=== PATIENT | male | born 1965 | race Caucasian/White ===

== ENCOUNTER 2017-02-15 11:59 | Emergency (ER) | payer MEDICAID | END 2017-02-15 15:10 | disposition home or self-care (01) | LOC: D.ER 11:59 | DX: S50.812A Abrasion of left forearm, initial encounter (principal); W10.9XXA Fall (on) (from) unspecified stairs and steps, initial encounter; Y93.89 Activity, other specified; Y92.89 Other specified places as the place of occurrence of the external cause; S40.012A Contusion of left shoulder, initial encounter; F17.200 Nicotine dependence, unspecified, uncomplicated ==

== ENCOUNTER 2017-11-14 13:23 | Inpatient (IN) | payer MEDICAID ==
[~2017-11-14] VITALS: Ht 177.8 cm; Wt 80.4 kg
[2017-11-14] MEDS ORDERED: LISINOPRIL5 MG PO (15:48)
[2017-11-14] MEDS ORDERED: COREG 3.1253.125 MG PO (15:49)
[2017-11-14] MEDS ORDERED: BAYER CHEWABLE81 MG PO (15:49)
[2017-11-14 15:50] VITALS: BP 129/94; BMI 26.0
[2017-11-14] MEDS ORDERED: LIPITOR80 MG PO (15:50)
[2017-11-14] MEDS ORDERED: BRILINTA90 MG PO (15:50)
[2017-11-14 17:21] LABS: BASOPHILS 0.4 % (0-2); EOSINOPHILS 1.3 % (0-7); HEMATOCRIT 38.3 % (42.0-54.0); HEMOGLOBIN 12.7 g/dL (13.5-17.5); IMMATURE GRANULOCYTES 0.1 % (0-5); MCH 31.2 pg (26.0-34.0); MCHC 33.2 g/dL (31.0-37.0); MCV 94.1 fL (80.0-100.0); MEAN PLATELET VOLUME 9.3 fL (7.4-10.4); MONOCYTES 9.7 % (2-11); NEUTROPHILS 62.5 % (40-80); PLATELET COUNT 259 10x3/uL (130-400); RBC 4.07 10x6/uL (4.20-6.10); RDW 12.5 % (11.5-14.5)
[2017-11-14 17:46] LABS: ALBUMIN 3.7 g/dL (3.4-5.0); ALKALINE PHOSPHATASE 72 U/L (46-116); ALT (SGPT) 33 U/L (10-68); BILIRUBIN - TOTAL 0.56 mg/dL (0.2-1.3); CALC OSMOLALITY 279 mosm/kg (275-300); CALCIUM 8.6 mg/dL (8.5-10.1); CARBON DIOXIDE 28.9 mmol/L (21.0-32.0); CHLORIDE - SERUM 104 mmol/L (98-107); CKMB 3.6 U/L (0.0-3.6); CREATINE KINASE 246 UL (21-232); CREATININE - SERUM 1.1 mg/dL (0.6-1.3); GLUCOSE 93 mg/dL (74-106); POTASSIUM - SERUM 3.8 mmol/L (3.5-5.1); PROTEIN - SERUM 7.1 g/dL (6.4-8.2); SODIUM 140 mmol/L (136-145); UREA NITROGEN 16 mg/dL (7-18); eGFR NON AFRICAN AMERICAN 75 mL/min (90-120)
[2017-11-14 17:47] LABS: TROPONIN-I < 0.017 ng/mL (0.000-0.060)
[2017-11-14 19:00] VITALS: BP 118/76
[2017-11-14 23:22] LABS: CKMB 2.9 U/L (0.0-3.6); CREATINE KINASE 229 UL (21-232)
[2017-11-14 23:23] LABS: TROPONIN-I < 0.017 ng/mL (0.000-0.060)
[2017-11-15 04:00] VITALS: BP 119/85
[2017-11-15 04:54] LABS: BASOPHILS 0.8 % (0-2); EOSINOPHILS 3.3 % (0-7); HEMATOCRIT 40.4 % (42.0-54.0); HEMOGLOBIN 13.4 g/dL (13.5-17.5); IMMATURE GRANULOCYTES 0.3 % (0-5); LYMPHOCYTES 32.1 % (15-50); MCH 31.1 pg (26.0-34.0); MCHC 33.2 g/dL (31.0-37.0); MCV 93.7 fL (80.0-100.0); MEAN PLATELET VOLUME 9.5 fL (7.4-10.4); MONOCYTES 11.8 % (2-11); NEUTROPHILS 51.7 % (40-80); PLATELET COUNT 262 10x3/uL (130-400); RBC 4.31 10x6/uL (4.20-6.10); RDW 12.7 % (11.5-14.5); WBC 6.3 10x3/uL (4.8-10.8)
[2017-11-15 05:24] LABS: CALC OSMOLALITY 274 mosm/kg (275-300); CALCIUM 8.6 mg/dL (8.5-10.1); CARBON DIOXIDE 23.7 mmol/L (21.0-32.0); CHLORIDE - SERUM 105 mmol/L (98-107); CKMB 2.4 U/L (0.0-3.6); CREATINE KINASE 180 UL (21-232); GLUCOSE 98 mg/dL (74-106); SODIUM 137 mmol/L (136-145); UREA NITROGEN 16 mg/dL (7-18); eGFR NON AFRICAN AMERICAN 83 mL/min (90-120)
[2017-11-15 05:27] LABS: TROPONIN-I < 0.017 ng/mL (0.000-0.060)
[2017-11-15 09:50] VITALS: BP 124/84
[2017-11-15 12:09] VITALS: Ht 177.8 cm; Wt 80.4 kg
[2017-11-15 12:15] VITALS: BP 121/80
== END 2017-11-15 15:00 | disposition home or self-care (01) | DRG 303 ==
LOC: D.M2 13:23
PROVIDERS: Emergency Medicine
DX: I25.110 Atherosclerotic heart disease of native coronary artery with unstable angina pectoris (principal); I10 Essential (primary) hypertension; E78.5 Hyperlipidemia, unspecified; J44.9 Chronic obstructive pulmonary disease, unspecified; Z86.73 Personal history of transient ischemic attack (TIA), and cerebral infarction without residual deficits; Z95.5 Presence of coronary angioplasty implant and graft; Z72.0 Tobacco use

== ENCOUNTER 2017-11-24 10:54 | Outpatient (CLI) | payer MEDICAID ==
[~2017-11-24] VITALS: Ht 177.8 cm; Wt 83.6 kg
--- NOTE | ~2017-11-24 | HEMODYNAMI ---
PATIENT:OLI PATTERSON MEDICAL RECORD: [id number] : 65 LOCATION:[facility] ADMISSION DATE: 11/24/17 Generatedon:11/24/201713:26 Patient name: OLI PATTERSON Patient #: [id number] SSN: : 1965 Date of study: 11/24/2017 Page: Of Hemodynamic Procedure Report Patient Data Patient Demographics Procedure consent was obtained First Name: OLI Gender: Male Last Name: LEONARDO : 1965 [facility] Initial: ASCENCION Age: 52 year(s) Patient #: [id number] Race: Unknown Additional ID: [id number] Contact details Address: [facility] [address] State: [place] City: [place] Zip code: [address] Past Medical History Allergies Allergen Reaction Date Comments Reported Penicillins 11/24/2017 Admission Admission Data Admission Date: 11/24/2017 Admission Time: 10:54 Weight (lbs.): 184 Weight (kg.): 83.46 Lab Results Lab Result Date: 11/24/2017 Lab Result Time: 0:00 Biochemistry Name Units Result Min Max BUN mg/dl 19 --(----)*- 7 18 Creatinine mg/dl 1 --(--*-)-- 0.6 1.3 CBC Name Units Result Min Max Hemoglobin g/dl 14.5 --(*---)-- 13.5 17.5 Procedure Procedure Types Cath Procedure Diagnostic Procedure LHC LH w/Coronaries Miscellaneous Procedures Moderate Sedation up to 15 minutes Procedure Description Procedure Date Procedure Date: 11/24/2017 Procedure Start Time: 13:08 Procedure End Time: 13:25 Procedure Staff Name Function Arley Medrano MD Performing Physician Rach Herrera RT Monitor Oscar Finnegan RT Scrub Samuel Finn RN Nurse Procedure Data Cath Procedure Fluoroscopy Diagnostic fluoroscopy Total fluoroscopy Time: 2.9 time: 2.9 min min Diagnostic fluoroscopy Total fluoroscopy dose: 429 dose: 429 mGy mGy Contrast Material Contrast Material Type Amount (ml) Isovue 300 78 Entry Location Entry Primary Successful Side Size Upsize Upsize Entry Closure Suarez ccessful Closure Location (Fr) 1 (Fr) 2 (Fr) Remarks Device Remarks Radial Right 6 Fr Mechanical artery Short Compression Estimated blood loss: 5 ml Diagnostic catheters Device Type Used For End Catheter Placement DIAGNOSTIC Bentley 110cm Procedure 5Fr catheter ([id number]) DIAGNOSTIC Pigtail 5Fr Procedure catheter ([id number]) Procedure Complications No complications Procedure Medications Medication Administration Route Dosage 0.9% NaCl I.V. 100 ml/hr Oxygen NC 2 l/min Heparin Flush Bag added to field 2 bags (1000units/500ml NS) Lidocaine 2% added to field 20 Radial Cocktail added to field 1 syringe (Verapomil 2mg/Nitro 400mcg/Heparin 1500units) Versed I.V. 1 mg Fentanyl I.V. 50 mcg Versed I.V. 1 mg Fentanyl I.V. 50 mcg Versed I.V. 1 mg Radial Cocktail I.A. 1 syringe (Verapomil 2mg/Nitro 400mcg/Heparin 1500units) Hemodynamics Rest HGB: 14.5 (g/dl) Heart Rate: 78 (bpm) Pressure Samples Time Site Value (mmHg) Purpose Heart Use Rate(bpm) 13:12 LV 116/-11,0 Snapshot 83 13:19 LV 120/-8,2 Snapshot 90 13:20 AO 102/58(75) Pullback 84 13:20 LV 115/-5,4 Pullback 84 Gradients Valve Time Site 1 Site 2 Mean SEP/DFP Peak To Heart Use (mmHg) (sec/min) Peak Rate (mmHg) (bpm) Aortic 13:20 LV AO 8 17 13 84 115/-5,4 102/58(75) Calculations Valve P-P Mean Valve Index Valve Source Name Gradient Area Flow (cm2) Aortic 13 8 13 8 Snapshots Pre Cath Intra NCS Post Cath Vital Signs Time Heart Resp SPO2 etCO2 NIBP Rhythm Pain Sedation Rate (ipm) (%) (mmHg) (mmHg) Status Level (bpm) 13:00:38 79 20 100 27.9 122/83(98) NSR 0 (11) 10(A) , No pain 13:05:16 82 17 97 30.2 122/78(89) NSR 0 (11) 10(A) , No pain 13:09:55 83 18 96 30.2 115/74(95) NSR 0 (11) 10(A) , No pain 13:14:33 92 17 97 23.4 110/68(90) NSR 0 (11) 9(A) , No pain 13:19:14 97 18 98 18.8 116/61(78) NSR 0 (11) 9(A) , No pain 13:23:54 82 18 98 17.3 116/62(98) NSR 0 (11) 9(A) , No pain Medications Time Medication Route Dose Verified Delivered Reason Notes Effectiveness by by 13:00:13 0.9% NaCl I.V. 100 Samuel Samuel Per ml/hr Aakash Finn physician RN RN 13:00:23 Oxygen NC 2 l/min Samuel Samuel Per Aakash Finn physician RN RN 13:00:38 Heparin Flush added 2 bags Samuel Samuel used for Bag to Lorigan Aakash procedure (1000units/500ml RN RN NS) 13:00:52 Lidocaine 2% added 20ml Samuel Samuel for local to vial Lorigan Lorigan anesthetic RN RN 13:01:04 Radial Cocktail added 1 Samuel Samuel used for (Verapomil to syringe Lorigan Melindaigan procedure 2mg/Nitro field DOW RN 400mcg/Heparin 1500units) 13:02:12 Versed I.V. 1 mg Samuel Samuel for sedation Aakash Finn RN RN 13:02:24 Fentanyl I.V. 50 mcg Samuel Sameul for sedation Aakash Finn RN RN 13:10:22 Versed I.V. 1 mg Samuel Samuel for sedation Aakash Finn RN RN 13:10:27 Fentanyl I.V. 50 mcg Samuel Samuel for sedation Aakash Finn RN RN 13:11:41 Versed I.V. 1 mg Samuel Samuel for sedation Aakash Finn RN RN 13:12:01 Radial Cocktail I.A. 1 Samuel Arley for (Verapomil syringe Aakash goldberg 2mg/Nitro RN 400mcg/Heparin 1500units) Procedure Log Time Note 12:37:31 Patient Weight : 184 lbs 12:37:43 Time tracking: Regular hours 12:37:50 Plan of Care:Hemodynamics will remain stable., Cardiac rhythm will remain stable., Comfort level will be maintained., Respiratory function will remain adequate., Patient/ family verbilizes understanding of procedure., Procedure tolerated without complication., Recovers from procedure without complications.. 12:38:11 Signed procedure consent form obtained from patient. 12:38:18 H&P Date Dictated: 11/17/2017 Within 30 days and on chart., H&P Addendum completed by physician on day of procedure. (MUST COMPLETE FOR ALL OUTPATIENTS). 12:38:25 Patient allergic to Penicillins 12:39:22 Lab Result : BUN 19 mg/dl 12:39:22 Lab Result : Hemoglobin 14.5 g/dl 12:39:22 Lab Result : Creatinine 1 mg/dl 12:41:14 Samuel Finn RN sent for patient. Start room use. 12:46:40 Patient received from Pre/Post Procedure Room to CCL 1 Alert and oriented. Tansferred to table in Supine position. 12:46:42 Warm blankets applied, and marilyn hugger turned on for patient comfort. 12:46:42 Correct patient and procedure confirmed by team. 12:46:43 ECG and BP/O2 sat monitors applied to patient. 12:59:48 Vital chart was started 12:59:49 Baseline sample Acquired. 12:59:55 Rhythm: sinus rhythm 12:59:57 Full Disclosure recording started 12:59:58 Pre-procedure instructions explained to patient. 12:59:58 Pre-op teaching completed and patient verbalized understanding. 13:00:06 Family in patients room. 13:00:07 Patient NPO since Midnight. 13:00:11 Is patient on blood thinner?Yes 13:00:13 0.9% NaCl 100 ml/hr I.V. was administered by Samuel Finn RN; Per physician; 13:00:14 ACC The patient was administered the following blood thiners within the last 24 hours: ACCPlavix 13:00:15 Patient diabetic? No. 13:00:19 Previous problem with sedation/anesthesia? No ? 13:00:20 Snore? Yes 13:00:23 Oxygen 2 l/min NC was administered by Samuel Finn RN; Per physician; 13:00:26 Sleep apnea? No 13:00:28 Deviated septum? No 13:00:29 Opens mouth fully? Yes 13:00:29 Sticks out tongue? Yes 13:00:31 Airway obstruction? No ? 13:00:34 Dentures? No ? 13:00:36 Modified Rodriguez's test Ulnar < 7 seconds 13:00:38 Heparin Flush Bag (1000units/500ml NS) 2 bags added to field was administered by Samuel Finn RN; used for procedure; 13:00:38 Patient pain scale 0/10 ?. 13:00:43 IV patent on arrival in left antecubital with 0.9% NaCl at [facility]. 13:00:52 Lidocaine 2% 20ml vial added to field was administered by Samuel Finn RN; for local anesthetic; 13:01:04 Radial Cocktail (Verapomil 2mg/Nitro 400mcg/Heparin 1500units) 1 syringe added to field was administered by Samuel Finn RN; used for procedure; 13:01:27 Lab results completed and on chart. 13:01:31 Right Radial & Right Groin area was prepped with chlora-prep and draped in sterile fashion 13:01:32 Alarms reviewed by R. N. 13:01:32 Sharps counted by scrub and verified by R.N. 13:01:40 --------ALL STOP TIME OUT------ 13:01:40 Final Timeout: patient, procedure, and site verified with staff and physician. All members of the team are in agreement. 13:01:42 Right Radial & Right Groin site verified by team. 13:01:45 Physical assessment completed. ASA score P 2 - A patient with mild systemic disease as per Arley Medrano MD. 13:01:48 Sedation plan: IV Moderate Sedation Medication:Versed, Fentanyl 13:02:12 Versed 1 mg I.V. was administered by Samuel Finn RN; for sedation; 13:02:24 Fentanyl 50 mcg I.V. was administered by Samuel Finn RN; for sedation; 13:02:56 Use device set Radial Dx or PCI 13:02:58 ACIST Syringe (84515) opened to sterile field. 13:02:59 Bag Decanter (2002S) opened to sterile field. 13:03:00 ACIST Hand Control (26045) opened to sterile field. 13:03:01 ACIST Manifold (58812) opened to sterile field. 13:03:01 Tegaderm 4 x 4 (1626W) opened to sterile field. 13:03:03 Medline Cath Pack ([id number]) opened to sterile field. 13:03:04 SHEATH 6FR Slender ([id number]) opened to sterile field. 13:03:04 DIAGNOSTIC WIRE .035 260cm J wire (618100) opened to sterile field. 13:03:05 MBrace Wrist Support ([id number]) opened to sterile field. 13:03:06 NEEDLE Cook 21G 4cm Radial (W65057) opened to sterile field. 13:05:53 Zero performed for pressure channel P1 13:08:33 Procedure started. 13:08:58 Local anesthetic to right radial artery with Lidocaine 2% by Arley Medrano MD.INITIAL ACCESS ONLY 13:10:18 A 6 Fr Short sheath was inserted into the Right Radial artery 13:10:22 Versed 1 mg I.V. was administered by Samuel Finn RN; for sedation; 13:10:27 Fentanyl 50 mcg I.V. was administered by Samuel Finn RN; for sedation; 13:11:37 A DIAGNOSTIC Bentley 110cm 5Fr catheter (120902) was advanced over the wire and used for Procedure. 13:11:41 Versed 1 mg I.V. was administered by Samuel Finn RN; for sedation; 13:12:01 Radial Cocktail (Verapomil 2mg/Nitro 400mcg/Heparin 1500units) 1 syringe I.A. was administered by Arley Medrano MD; for vasodilation; 13:13:26 RCA angiography performed. 13:16:20 LCA angiography performed. 13:18:19 Catheter exchanged over wire. 13:18:30 A DIAGNOSTIC Pigtail 5Fr catheter ([id number]) was advanced over the wire and used for Procedure. 13:19:30 LV gram done using BRITO 13:19:46 Injector settings: Ml/sec: 5, Volume: 15, 13:19:47 LV hemodynamics recorded. 13:20:10 EF : 60 % 13:21:11 Catheter removed. 13:21:20 TR BAND Standard ([id number]) opened to sterile field. 13:21:33 Sheath removed intact; hemostasis achieved with Mechanical Compression to the Right Radial artery. 13:21:42 Procedure ended.(Physican Out) 13:22:02 Fluoroscopy time 02.90 minutes. 13:22:06 Fluoroscopy dose: 429 mGy 13:22:06 Flurop Dose total: 429 13:22:12 Contrast amount:Isovue 300 78ml. 13:22:13 Sharps counted by scrub and verified by R.N. 13:22:30 TR band inflated with 13cc of air. 13:22:39 Post-procedure physical assessment completed. ASA score P 2 - A patient with mild systemic disease as per Arley Medrano MD. 13:22:42 Post procedure rhythm: unchanged. 13:22:44 Estimated blood loss: 5 ml 13:22:45 Post procedure instruction explained to patient.Patient verbalizes understanding. 13:22:46 Patient needs reinforcement of post procedure teaching. 13:24:03 Procedure type changed to Cath procedure, Diagnostic procedure, LHC, LHC w/Coronaries, Miscellaneous Procedures, Moderate Sedation up to 15 minutes 13:24:25 Procedure and supply charges have been captured, reviewed, submitted and are correct. 13:24:28 Procedure Complication : No complications 13:25:47 Vital chart was stopped 13:25:48 See physician's report for complete and final results. 13:25:50 Report given to Pre/Post Procedure Room. 13:25:53 Patient transfered to Pre/Post Procedure Room with Bed. 13:25:55 Procedure ended. 13:25:55 Full Disclosure recording stopped 13:25:59 End room use (Document Last) Device Usage Item Name Manufacture Quantity Catalog Hospital Part Current Minima l Lot# / Number Charge Number Stock Stock Serial# Code ACIST Acist 1 20324 630401 223802 224763 20 Syringe Medical (30047) Systems Inc Bag Decanter Microtek 1 2001S 992099 59939 815680 5 () Medical Inc. ACIST Hand Acist 1 47431 665071 715462 259465 5 Control Medical (22853) Systems Inc ACIST Acist 1 82282 654641 623819 195395 5 Manifold Medical (15928) Systems Inc Tegaderm 4 x 3M 1 1626W 721276 690135 383728 5 4 (1626W) Medline Cath Cardinal 1 [id number] 830552 03665 693473 5 [facility] ([id number]) SHEATH 6FR Terumo 1 [id number] 922324 921943 276417 40 Slender ([id number]) DIAGNOSTIC [facility] Luis 1 754310 873867 499376 203735 30 WIRE .035 260cm J wire (156958) MBrace Wrist Advanced 1 140-0250-00 919600 51391 271951 5 Support Vascular ([id number]) Dynamics NEEDLE Cook [place] [employer] 1 Y23335 718966 685924 858147 5 21G 4cm Radial (U74533) DIAGNOSTIC Terumo 1 40-5762 408989 589730 485256 5 Bentley 110cm 5Fr catheter (033019) DIAGNOSTIC Cardinal 1 329266H 564746 641356 726973 5 Pigtail 5Fr Health catheter (422168N) TR BAND Terumo 1 GIO07-CAU 557823 902133 007198 40 Standard ([id number]) Signature Audit [place] Stage Time Signature Unsigned Intra-Procedure 11/24/2017 Rach Herrera 1:26:11 PM RT(R) Signatures Monitor : Rach Herrera Signature : RT Date : Time : [facility] Abiola REYNOLDS, JULIAN [address]
[~2017-11-24 10:54] MED LIST: BAYER CHEWABLE81 MG PO; BRILINTA90 MG PO; COREG 3.1253.125 MG PO; LIPITOR80 MG PO; LISINOPRIL5 MG PO
[2017-11-24 11:24] VITALS: BP 124/92; Ht 177.8 cm; Wt 83.6 kg
[2017-11-24 11:38] LABS: BASOPHILS 0.6 % (0-2); EOSINOPHILS 1.1 % (0-7); HEMOGLOBIN 14.5 g/dL (13.5-17.5); IMMATURE GRANULOCYTES 0.1 % (0-5); LYMPHOCYTES 19.1 % (15-50); MCH 31.7 pg (26.0-34.0); MCHC 33.7 g/dL (31.0-37.0); MCV 93.9 fL (80.0-100.0); MEAN PLATELET VOLUME 9.3 fL (7.4-10.4); MONOCYTES 6.2 % (2-11); NEUTROPHILS 72.9 % (40-80); PLATELET COUNT 281 10x3/uL (130-400); RBC 4.58 10x6/uL (4.20-6.10); RDW 12.4 % (11.5-14.5); WBC 7.1 10x3/uL (4.8-10.8)
[2017-11-24 11:48] LABS: CALC OSMOLALITY 277 mosm/kg (275-300); CALCIUM 9.3 mg/dL (8.5-10.1); CARBON DIOXIDE 25.2 mmol/L (21.0-32.0); CHLORIDE - SERUM 104 mmol/L (98-107); GLUCOSE 90 mg/dL (74-106); POTASSIUM - SERUM 4.2 mmol/L (3.5-5.1); SODIUM 138 mmol/L (136-145); UREA NITROGEN 19 mg/dL (7-18); eGFR NON AFRICAN AMERICAN 83 mL/min (90-120)
== END 2017-11-24 16:00 | disposition home or self-care (01) ==
LOC: D.CATH 10:54
PROVIDERS: Internal Medicine Cardiovascular Disease
DX: I25.119 Atherosclerotic heart disease of native coronary artery with unspecified angina pectoris (principal); R06.02 Shortness of breath; I10 Essential (primary) hypertension; Z01.812 Encounter for preprocedural laboratory examination

== ENCOUNTER 2017-12-02 07:30 | Inpatient (IN) | payer MEDICAID ==
[2017-12-01 10:18] LABS: BASOPHILS 1.1 % (0-2); EOSINOPHILS 2.5 % (0-7); HEMATOCRIT 40.2 % (42.0-54.0); HEMOGLOBIN 13.2 g/dL (13.5-17.5); IMMATURE GRANULOCYTES 0.1 % (0-5); LYMPHOCYTES 32.2 % (15-50); MCH 31.3 pg (26.0-34.0); MCHC 32.8 g/dL (31.0-37.0); MCV 95.3 fL (80.0-100.0); MEAN PLATELET VOLUME 9.4 fL (7.4-10.4); MONOCYTES 8.5 % (2-11); NEUTROPHILS 55.6 % (40-80); PLATELET COUNT 290 10x3/uL (130-400); RBC 4.22 10x6/uL (4.20-6.10); RDW 12.7 % (11.5-14.5); WBC 7.2 10x3/uL (4.8-10.8)
[2017-12-01 10:42] LABS: APPEARANCE CLEAR (CLEAR); BILIRUBIN NEGATIVE (NEGATIVE); COLOR YELLOW (YELLOW); GLUCOSE NEGATIVE (NEGATIVE); KETONE NEGATIVE (NEGATIVE); NITRITE NEGATIVE (NEGATIVE); PROTEIN NEGATIVE (NEGATIVE); SPECIFIC GRAVITY 1.015 (1.005-1.020)
[2017-12-01 10:46] LABS: APTT 29.8 SECONDS (22.8-39.4); INR 0.91 (0.85-1.17); PROTIME 11.9 SECONDS (11.6-15.0)
[2017-12-01 11:51] LABS: ALBUMIN 3.6 g/dL (3.4-5.0); BILIRUBIN - TOTAL 0.36 mg/dL (0.2-1.3); CALCIUM 8.7 mg/dL (8.5-10.1); CARBON DIOXIDE 21.9 mmol/L (21.0-32.0); CREATININE - SERUM 1.3 mg/dL (0.6-1.3); PHOSPHOROUS 2.8 mg/dL (2.5-4.9); POTASSIUM - SERUM 3.9 mmol/L (3.5-5.1); PROTEIN - SERUM 7.5 g/dL (6.4-8.2); T4 THYROXIN - FREE 1.05 ng/dL (0.76-1.46); THYROID STIMULATING HORMONE 0.85 uIU/mL (0.36-3.74); URIC ACID 4.6 mg/dL (2.6-7.2)
[~2017-12-02] VITALS: Ht 177.8 cm; Wt 88.6 kg
--- NOTE | ~2017-12-02 | HP ---
PATIENT: OLI PATTEROSN MEDICAL RECORD: [id number] ACCOUNT: [id number] LOCATION:[facility] : 65 ADMISSION DATE: 12/02/17 HISTORY AND PHYSICAL EXAMINATION NameOLI PATTERSON (52yo, M) ID# [id number]. Date/Time11/28/2017 02:27GXHZY65/19/1964[facility] Dept.NP_[place] ClinicProviderRUBINA BARAJAS MDInsuranceMed Primary: [place] Insurance # : [id number] Policy/Group # : [id number] Referring Provider Name : RITA MARIE FNP Employer Name : UNKNOWN Prescription: CMX - Member is eligible. Prescription: [facility] MEDICAID ADMINISTRATION - Member is eligible. Chief Complaint Coronary artery disease initial evaluation for CABG Patient's Care Team Referring Provider (): RITA MARIE FNP: [address], [place] [address], , Patient's Pharmacies [facility] [address] (ERX): [address] , [place] [address], , Vitals BP:108/70 sitting L arm 11/28/2017 02:07 pm 110/76 sitting R arm 11/28/2017 02:08 pmBP Cuff Size:adult 11/28/2017 02:07 pm adult 11/28/2017 02:08 pmHR:64,reg 11/28/2017 02:09 pmHt:5 ft 10 in 11/28/2017 02:09 pmWt:180 lbs 11/28/2017 02:10 pmNotes:increasing SOB past month. PCP sent to marisa Medrano, now here. 11/28/2017 02:11 pmBMI:25.8 11/28/2017 02:10 pmAllergies Reviewed Allergies PENICILLINSMedications Reviewed Medications aspirin 81 mg tablet,delayed rjxnesi76/23/18 filledCaremarkatorvastatin 80 mg tablet TK 1 T PO QD11/21/17 filledCaremarkBrilinta 90 mg tablet TK 1 T PO BID11/24/17 filledsurescriptscarvedilol 3.125 mg cyoniq13/23/18 filledCaremarklisinopril 5 mg tablet TK 1 T PO QD11/21/17 filledCaremarknitroglycerin 0.4 mg sublingual zfcopv65/23/18 filledCaremarkProblems Reviewed Problems Coronary arteriosclerosis - Onset: 11/28/2017 Family History Reviewed Family History Father- Coronary arteriosclerosisMother- Coronary arteriosclerosisGRANDPARENTS WITH CADSocial History Reviewed Social History Cardiology Family history of heart disease?: Y Smoking Status: Current every day smoker Smoker (1 PPD) High Cholesterol: Y High blood pressure: Y Diabetes: N HISTORY AND PHYSICAL [id number] OLI PATTERSON Surgical History Reviewed Surgical History CARDIAC CATH 2015 at [facility] Past Medical History Reviewed Past Medical History Angioplasty (balloon): Y - STENTING 2015 Coronary Artery Disease: Y Heart stents: Y Hyperlipidemia: Y Hypertension: Y Notes: HX MYOCARDIAL INFARCTION Documents for Discussion N/A Screening None recorded. HPI Coronary Artery Disease F/U Reported by patient. Severity: no chest discomfort with daily activities; symptoms are worsening Context: smoker Associated Symptoms: dyspnea with exertion Notes: has noted sharp stabbing pains when relaxing, no nocturnal pain. Mostly c/o dyspnea with exertion. ROS Patient reports no fever, no night sweats, no significant weight gain, no significant weight loss, and no exercise intolerance. He reports no dry eyes, no irritation, and no vision change. He reports no difficulty hearing and no ear pain. He reports no frequent nosebleeds and no nose/sinus problems. He reports no sore throat, no bleeding gums, no snoring, no dry mouth, no mouth ulcers, no oral abnormalities, and no teeth problems. H e reports no jugular vein distension and no swollen glands. He reports no chest pain, no arm pain on exertion, no shortness of breath when walking, no shortness of breath when lying down, no palpitations, and no known heart murmur. He reports no cough, no wheezing, no shortness of breath, and no coughing up blood. He reports no abdominal pain, no vomiting, normal appetite, no diarrhea, not vomiting blood, no nausea, and no constipation. He reports no incontinence, no difficulty urinating, no hematuria, and no increased frequency. He reports no muscle aches, no muscle weakness, no arthralgias/joint pain, no back pain, and no swelling in the extremities. He reports no abnormal mole, no jaundice, and no rashes. He reports no loss of consciousness, no weakness, no numbness, no seizures, no dizziness, and no headaches. He reports no depression, no sleep disturbances, feeling safe in relationship, and no alcohol abuse. He reports no fatigue. He reports no swollen glands and no bruising. He reports no runny nose, n o sinus pressure, no itching, no hives, and no frequent sneezing. ROS as noted in the HPI Physical Exam Patient is a 52-year-old male. Constitutional: General Appearance well nourished and developed and healthy-appearing. Level of Distress NAD. Ambulation ambulating normally. Cardiovascular: Apical Impulse not displaced or no thrill. Heart Auscultation normal s1 and s2; no murmurs, rubs, or gallops; and RRR. Arterial Pulses no abdominal aorta bruits, femoral bruits, or popliteal bruits and 2+ bilateral, carotid 2+ bilateral, femoral 2+ bilateral, popliteal 2+ bilateral, and dorsalis pedis 2+ bilateral. Edema no edema or varicosities. HISTORY AND PHYSICAL [id number] OLI PATTERSON Lungs: Repiratory Effort no dyspnea. Percussion no hyperresonance or dullness or flatness. Auscultation no wheezing, rhonchi, or rales / crackles and breathing sounds normal, good air movement, and CTA except as noted. Abdomen: Bowl Sounds normal. Inspection and Palpation no tenderness, guarding, masses, or rebound tenderness and soft and non-distended. Yolanda er non-tender and no hepatomegaly. Spleen non-tender and no splenomegaly. Hernia none palpable. Musculoskeletal System: Gait And Stance normal gait and stance. Digits and Nails normal nails and no cyanosis. Neurologic: Cranial Nerves grossly intact. Reflexes DTRs 2+ bilaterally throughout. Sensation grossly intact. Lymph Nodes: Lymph Nodes no cervical LAD, supraclavicular LAD, axillary LAD, or inguinal LAD. Eyes: Lids and Conjunctivae no discharge or pallor and non-injected. Pupils PERRLA. Cornea grossly intact. EOM EOMI. Lens clear. Sclerae non-icteric. Neck: Neck no masses, enlarged lymph nodes, or carotid bruits and supple and trachea midline. Thyroid no enlargement or nodules and non-tender. Skin: Inspection and Palpation no rash, lesions, ulcers, jaundice, or abnormal nevi. Assessment / Plan 1. Coronary arteriosclerosis I25.10: Atherosclerotic heart disease of [place] coronary artery without angina pectoris 2. Coronary arteriosclerosis in [place] artery I25.110: Atherosclerotic heart disease of [place] coronary artery with unstable angina pectoris 3. Smoker F17.210: Nicotine dependence, cigarettes, uncomplicated 4. Essential hypertension I10: Essential (primary) hypertension HIGH BLOOD PRESSURE: CARE INSTRUCTIONS Patient Instructions Stop smoking Discussion Notes RBA, consents HISTORY AND PHYSICAL [id number] OLI PATTERSON DANIEL W MD at 1733 CC: [id number] DICTATION DATE: 11/28/17 1400 JUNIOR NET DEVELOPER: MIGUELINA 12/01/17 1016 PRE IN [facility] [address] [place] [address]
--- NOTE | ~2017-12-02 | EC ---
PATIENT:OLI PATTERSON DATE OF SERVICE: 12/03/17 SEX: M MEDICAL RECORD: [id number] DATE OF : 65 LOCATION:[place] [address] AGE OF PATIENT: 52 ADMISSION DATE: 12/03/17 REFERRING PHYSICIAN: INTERPRETING PHYSICIAN: DHRUV MOORE MD ECHOCARDIOGRAM REPORT ECHO CHARGES CLINICAL DIAGNOSIS: ECHOCARDIOGRAPHIC MEASUREMENTS (adult normal given) AC root (d.<3.7cm) cm LV Septum d (<1.2 cm> cm Valve Excursion cm LV Septum (systole) cm Left Atria (s.<4.0cm> cm LVPW d(<1.2cm) cm RV (d.<2.3cm) cm LVPW (sytole) cm LV diastole(<5.6CM) cm MV E-F(>70mm/sec) cm LV systole cm LVOT Diameter cm MV exc.(>10mm) cm Est.ejection fraction (50-75%) % Pericardial Effusion DOPPLER: LVIT cm/sec A cm/sec E cm/sec LA cm/sec RVSP mmHg LVOT cm/sec AOP1/2T m/s Asc. Ao cm/sec RVOT cm/sec RA cm/sec PA cm/sec AV Gradient Peak mmHg AV Mean mmHg AV Area cm MV Gradient Peak mmHg MV Mean mmHg MV Area cm COMMENTS: Glassie: Andrés GARNER Computer Aided Drafter: Sidney Medrano TAPE# PACS DATE OF SERVICE: 12/03/2017 Transesophageal echo evaluation of valvular structures during bypass surgery. FINDINGS: 1. Left ventricular chamber size is within normal limits. Left ventricular systolic function is normal. Overall ejection fraction estimated at 55%. 2. Left atrium, right atrium and right ventricular chamber sizes are within normal limits. 3. Valvular structures have normal structure and motion. ECHOCARDIOGRAM REPORT [id number] OLI PATTERSON 4. Doppler interrogation only reveals trace mitral regurgitation. No other valvular insufficiency or stenosis. 5. No evidence of pericardial effusion or left ventricular thrombus. TRANSINT:[id number] Voice Confirmation ID: [id number] DOCUMENT ID: [id number] DHRUV MOORE MD at 1153 CC: [id number] DICTATION DATE: 12/03/17 1229 PAPERHANGER SUPERVISOR: 12/03/17 1303 ADM IN [facility] [address] [place] [address]
--- NOTE | ~2017-12-02 | OP ---
PATIENT NAME: OLI PATTERSON MEDICAL RECORD: [id number] :65 LOCATION:[facility] ADMISSION DATE:12/03/17 SURGEON: PAL BARAJAS MD DATE OF OPERATION: 12/03/2017 SURGEON: Pal Barajas MD CERTIFIED INDOOR ENVIRONMENTALIST: JAMIE Oswald OPERATIVE PROCEDURE: Coronary artery bypass graft times 3 (left internal mammary artery to LAD, reverse saphenous vein grafts from aorta to obtuse marginal and aorta to posterior descending artery). PREOPERATIVE DIAGNOSES: Coronary disease, unstable angina. POSTOPERATIVE DIAGNOSES: Coronary disease, unstable angina. ANESTHESIA: General endotracheal anesthesia. ESTIMATED BLOOD LOSS: Total cardiopulmonary bypass, 800 cc. Cell Saver retransfused. COMPLICATIONS: Left subclavian artery perforation, repaired primarily. SPECIMENS: None. CONDITION: Stable. DISPOSITION: SICU. OPERATIVE FINDINGS: 1. Good quality greater saphenous vein from the lower leg with severe varicosities, about every 3 cm starting from the knee upward. Two good segments were available for use. 2. Good quality internal mammary artery. On visualization in the chest, the subclavian vein had been perforated and was primarily repaired. It was left subclavian introduced after induction and prior to incision. 3. LAD was a 1.5-mm vessel with posterior plaque. A 1.5-mm probe passed distally to the apex and proximally about 1 cm. 4. The diagonal was small, severely calcified, and not amenable to bypass. 5. The obtuse marginal was 1.5 mm and intramyocardial. 6. Posterior descending artery 1.5 mm with severe disease. 7. Normal heart, from cardiopulmonary bypass without difficulty. OPERATIVE INDICATION: Unstable angina, multivessel coronary disease. OPERATIVE SUMMARY IN DETAIL: The patient was brought to the operating suite. General anesthesia was obtained. The patient was prepped and draped. Greater saphenous vein was harvested from the right lower extremity utilizing several incisions. Side branches were clipped. Vessel was ligated proximally and distally, removed, perfused with heparinized saline. Leg was made hemostatic and closed in 2 layers and wrapped with an elastic wrap. Median sternotomy incision was made. Subcutaneous tissue was divided with electrocautery. Sternum was divided with a saw. Left hemisternum was elevated. OPERATIVE REPORT [id number] OLI PATTERSON Left pleural cavity was entered. Left internal mammary artery and vein were taken down as a pedicle graft. The subclavian vein was identified and a perforation site was noted, was repaired primarily, and the left subclavian catheter was removed with no evidence of bleeding. Sternal retractor was placed. Pericardium was opened. Heparin was given. The patient was cannulated in standard fashion. Internal mammary was clipped distally and made ready for anastomosis. The patient was placed on cardiopulmonary bypass. Sites for distal anastomoses were selected. Retrograde cardioplegia cannula was inserted. Antegrade cardioplegic cannula was inserted. The patient was then cooled. Cross-clamp was placed. Cardioplegia was given antegrade and retrograde. This was repeated at 15-minute intervals including down the completed vein grafts. Distal anastomoses were performed in a standard technique. Proximal anastomosis was single, cross-clamped in standard technique. Aortic root was deaired by removing the cross-clamp, tying the proximal anastomosis, deairing the vein graft, and restoring the flow. Proximal and distal anastomotic sites were inspected for bleeding. The patient resumed spontaneous rhythm, fully rewarmed, weaned from cardiopulmonary bypass, and was stable. The patient was decannulated. Retrograde site and aortic cannulation site were oversewn. Hemostasis was assured. Protamine was given. Thorough irrigation was undertaken. Grafts lay appropriately. Drains were placed in mediastinum and left pleural cavity. Pericardial fat was loosely reapproximated. Left chest was evacuated and irrigated. Sternum was closed after inspection of the subclavian. Then, the fascia, subcutaneous tissue, and skin were closed. The patient was stable, to intensive care. TRANSINT:[id number] Voice Confirmation ID: [id number] DOCUMENT ID: [id number] PAL BARAJAS MD at 0656 CC: NIKOS ESPAÑA M.D. [id number] DICTATION DATE: 12/03/17 1648 SUPPORT DIRECTOR: 12/03/17 1830 ADM IN [address] [id number] [place] [address]
[2017-12-03] VITALS (40 sets, daily range): BP systolic 103–140; BP diastolic 53–89; BMI 26.3
[2017-12-03 08:06] LABS: PLT FUNCT.(P2Y12) PLAVIX 258 PRU (194-418)
[2017-12-03 14:05] LABS: HEMATOCRIT 39.2 % (42.0-54.0); HEMOGLOBIN 12.8 g/dL (13.5-17.5); MCH 31.4 pg (26.0-34.0); MCHC 32.7 g/dL (31.0-37.0); MCV 96.3 fL (80.0-100.0); MEAN PLATELET VOLUME 9.3 fL (7.4-10.4); RBC 4.07 10x6/uL (4.20-6.10); RDW 12.8 % (11.5-14.5); WBC 28.5 10x3/uL (4.8-10.8)
[2017-12-03 14:17] LABS: APTT 31.7 SECONDS (22.8-39.4); INR 1.21 (0.85-1.17); PROTIME 14.8 SECONDS (11.6-15.0)
[2017-12-03 14:19] LABS: CALCIUM 7.7 mg/dL (8.5-10.1); CHLORIDE - SERUM 110 mmol/L (98-107); CREATININE - SERUM 0.9 mg/dL (0.6-1.3); POTASSIUM - SERUM 3.4 mmol/L (3.5-5.1); SODIUM 145 mmol/L (136-145); UREA NITROGEN 17 mg/dL (7-18); eGFR NON AFRICAN AMERICAN > 90 mL/min (90-120)
[2017-12-03 14:21] LABS: CALC OSMOLALITY 288 mosm/kg (275-300); GLUCOSE 56 mg/dL (74-106)
[2017-12-04] VITALS (47 sets, daily range): BP systolic 99–139; BP diastolic 52–93; Ht 177.8 cm; Wt 88.6 kg
[2017-12-04 06:19] LABS: ALBUMIN 3.1 g/dL (3.4-5.0); BILIRUBIN - TOTAL 0.54 mg/dL (0.2-1.3); CALCIUM 7.7 mg/dL (8.5-10.1); CARBON DIOXIDE 25.1 mmol/L (21.0-32.0); CREATININE - SERUM 1.1 mg/dL (0.6-1.3); HEMATOCRIT 37.7 % (42.0-54.0); HEMOGLOBIN 12.5 g/dL (13.5-17.5); MCH 31.3 pg (26.0-34.0); MCHC 33.2 g/dL (31.0-37.0); MCV 94.3 fL (80.0-100.0); MEAN PLATELET VOLUME 9.2 fL (7.4-10.4); PROTEIN - SERUM 6.1 g/dL (6.4-8.2); WBC 23.1 10x3/uL (4.8-10.8)
[2017-12-04 06:20] LABS: POTASSIUM - SERUM 4.1 mmol/L (3.5-5.1)
[2017-12-05] VITALS (31 sets, daily range): BP systolic 86–121; BP diastolic 44–74
[2017-12-05 05:10] LABS: HEMATOCRIT 35.3 % (42.0-54.0); HEMOGLOBIN 11.5 g/dL (13.5-17.5); MCH 30.8 pg (26.0-34.0); MCHC 32.6 g/dL (31.0-37.0); MCV 94.6 fL (80.0-100.0); MEAN PLATELET VOLUME 9.6 fL (7.4-10.4); RBC 3.73 10x6/uL (4.20-6.10); RDW 13.2 % (11.5-14.5); WBC 22.2 10x3/uL (4.8-10.8)
[2017-12-05 05:15] LABS: ALBUMIN 2.7 g/dL (3.4-5.0); ALKALINE PHOSPHATASE 51 U/L (46-116); ALT (SGPT) 25 U/L (10-68); BILIRUBIN - TOTAL 0.75 mg/dL (0.2-1.3); CALC OSMOLALITY 263 mosm/kg (275-300); CARBON DIOXIDE 26.5 mmol/L (21.0-32.0); CHLORIDE - SERUM 98 mmol/L (98-107); GLUCOSE 118 mg/dL (74-106); POTASSIUM - SERUM 4.3 mmol/L (3.5-5.1); PROTEIN - SERUM 6.1 g/dL (6.4-8.2); SODIUM 130 mmol/L (136-145); UREA NITROGEN 19 mg/dL (7-18); eGFR NON AFRICAN AMERICAN 83 mL/min (90-120)
[2017-12-05 18:33] LABS: HEMATOCRIT 34.1 % (42.0-54.0); HEMOGLOBIN 11.5 g/dL (13.5-17.5)
[2017-12-05 22:56] LABS: ALBUMIN 2.4 g/dL (3.4-5.0); ALKALINE PHOSPHATASE 49 U/L (46-116); ALT (SGPT) 26 U/L (10-68); CALC OSMOLALITY 267 mosm/kg (275-300); CALCIUM 7.8 mg/dL (8.5-10.1); CARBON DIOXIDE 23.7 mmol/L (21.0-32.0); CHLORIDE - SERUM 99 mmol/L (98-107); CREATININE - SERUM 0.8 mg/dL (0.6-1.3); GLUCOSE 124 mg/dL (74-106); POTASSIUM - SERUM 3.9 mmol/L (3.5-5.1); PROTEIN - SERUM 6.3 g/dL (6.4-8.2); SODIUM 132 mmol/L (136-145); UREA NITROGEN 18 mg/dL (7-18); eGFR NON AFRICAN AMERICAN > 90 mL/min (90-120)
[2017-12-06] VITALS (42 sets, daily range): BP systolic 85–123; BP diastolic 41–72
[2017-12-06 06:08] LABS: HEMATOCRIT 30.7 % (42.0-54.0); HEMOGLOBIN 10.1 g/dL (13.5-17.5); MCH 30.6 pg (26.0-34.0); MCHC 32.9 g/dL (31.0-37.0); MEAN PLATELET VOLUME 9.8 fL (7.4-10.4); RBC 3.3 10x6/uL (4.20-6.10); RDW 13.2 % (11.5-14.5)
[2017-12-06 06:27] LABS: ALBUMIN 2.3 g/dL (3.4-5.0); ALKALINE PHOSPHATASE 48 U/L (46-116); ALT (SGPT) 26 U/L (10-68); CALC OSMOLALITY 273 mosm/kg (275-300); CALCIUM 7.6 mg/dL (8.5-10.1); CHLORIDE - SERUM 102 mmol/L (98-107); CREATININE - SERUM 0.8 mg/dL (0.6-1.3); GLUCOSE 120 mg/dL (74-106); PROTEIN - SERUM 5.5 g/dL (6.4-8.2); SODIUM 136 mmol/L (136-145); UREA NITROGEN 16 mg/dL (7-18); eGFR NON AFRICAN AMERICAN > 90 mL/min (90-120)
[2017-12-07] VITALS (24 sets, daily range): BP systolic 90–123; BP diastolic 44–89
[2017-12-07 05:07] LABS: HEMATOCRIT 27.9 % (42.0-54.0); HEMOGLOBIN 9.3 g/dL (13.5-17.5); MCH 30.8 pg (26.0-34.0); MCHC 33.3 g/dL (31.0-37.0); MCV 92.4 fL (80.0-100.0); MEAN PLATELET VOLUME 9.2 fL (7.4-10.4); RBC 3.02 10x6/uL (4.20-6.10); RDW 13.3 % (11.5-14.5); WBC 10.9 10x3/uL (4.8-10.8)
[2017-12-07 05:28] LABS: ALBUMIN 2.2 g/dL (3.4-5.0); ALKALINE PHOSPHATASE 41 U/L (46-116); ALT (SGPT) 24 U/L (10-68); BILIRUBIN - TOTAL 0.57 mg/dL (0.2-1.3); CALC OSMOLALITY 266 mosm/kg (275-300); CALCIUM 8.3 mg/dL (8.5-10.1); CARBON DIOXIDE 24.3 mmol/L (21.0-32.0); CHLORIDE - SERUM 102 mmol/L (98-107); CREATININE - SERUM 0.9 mg/dL (0.6-1.3); GLUCOSE 107 mg/dL (74-106); POTASSIUM - SERUM 3.6 mmol/L (3.5-5.1); SODIUM 133 mmol/L (136-145); UREA NITROGEN 16 mg/dL (7-18); eGFR NON AFRICAN AMERICAN > 90 mL/min (90-120)
[2017-12-08] VITALS: BP 110/60
[2017-12-08 04:57] LABS: HEMATOCRIT 30.8 % (42.0-54.0); HEMOGLOBIN 10.1 g/dL (13.5-17.5); MCH 30.9 pg (26.0-34.0); MCHC 32.8 g/dL (31.0-37.0); MCV 94.2 fL (80.0-100.0); MEAN PLATELET VOLUME 9.3 fL (7.4-10.4); RBC 3.27 10x6/uL (4.20-6.10); RDW 13.3 % (11.5-14.5); WBC 10.9 10x3/uL (4.8-10.8)
[2017-12-08 05:13] LABS: ALBUMIN 2.3 g/dL (3.4-5.0); ALKALINE PHOSPHATASE 44 U/L (46-116); ALT (SGPT) 28 U/L (10-68); CALC OSMOLALITY 271 mosm/kg (275-300); CALCIUM 8.1 mg/dL (8.5-10.1); CARBON DIOXIDE 24.5 mmol/L (21.0-32.0); CHLORIDE - SERUM 102 mmol/L (98-107); CREATININE - SERUM 0.9 mg/dL (0.6-1.3); GLUCOSE 100 mg/dL (74-106); POTASSIUM - SERUM 3.4 mmol/L (3.5-5.1); PROTEIN - SERUM 6.3 g/dL (6.4-8.2); SODIUM 135 mmol/L (136-145); UREA NITROGEN 17 mg/dL (7-18); eGFR NON AFRICAN AMERICAN > 90 mL/min (90-120)
[2017-12-08 07:00] VITALS: BP 134/60
[2017-12-08] MEDS ORDERED: SENOKOT-S TABLE1 TAB PO (08:57)
[2017-12-08] MEDS ORDERED: COLACE100 MG PO (08:58)
[2017-12-08] MEDS ORDERED: HYDROCODONE-APA1 TAB PO (09:02)
[2017-12-08] MEDS ORDERED: TOPROL XL25 MG PO (09:45)
[2017-12-08] MEDS ORDERED: CARDIZEM CD120 MG PO (09:52)
[2017-12-08] MEDS ORDERED: CORDARONE200 MG PO (09:53)
== END 2017-12-08 11:05 | disposition home or self-care (01) | DRG 236 ==
LOC: D.SDCHOLD 07:30 → D.CVICU 12-03 05:29 → D.SDCHOLD 12-03 05:29 → D.CVICU 12-03 13:09 → D.M2 12-05 16:04 → D.CVICU 12-05 20:34
PROVIDERS: Internal Medicine Cardiovascular Disease; Thoracic Surgery (Cardiothoracic Vascular Surgery)
PROC: 021109W Bypass Coronary Artery, Two Arteries from Aorta with Autologous Venous Tissue, Open Approach (ICD-10-PCS; 2017-12-03)
PROC: 06BP0ZZ Excision of Right Saphenous Vein, Open Approach (ICD-10-PCS; 2017-12-03)
PROC: 03Q Upper Arteries, Repair (ICD-10-PCS; 2017-12-03)
PROC: 5A1221Z Performance of Cardiac Output, Continuous (ICD-10-PCS; 2017-12-03)
PROC: B245ZZ4 Ultrasonography of Left Heart, Transesophageal (ICD-10-PCS; 2017-12-03)
PROC: 02100Z9 Bypass Coronary Artery, One Artery from Left Internal Mammary, Open Approach (ICD-10-PCS; principal; 2017-12-03 07:30)
DX: I25.110 Atherosclerotic heart disease of native coronary artery with unstable angina pectoris (principal); I97.51 Accidental puncture and laceration of a circulatory system organ or structure during a circulatory system procedure; I48.91 Unspecified atrial fibrillation; E78.5 Hyperlipidemia, unspecified; I10 Essential (primary) hypertension; Y83.8 Other surgical procedures as the cause of abnormal reaction of the patient, or of later complication, without mention of misadventure at the time of the procedure; Z72.0 Tobacco use

== ENCOUNTER → 2017-12-24 08:47 | Outpatient (CLI) | payer MEDICAID ==
[2017-12-04 10:19] VITALS: BMI 27.8
[~2017-12-24 08:47] MED LIST changes: +CARDIZEM CD120 MG PO; +COLACE100 MG PO; +CORDARONE200 MG PO; +HYDROCODONE-APA1 TAB PO; +LEVAQUIN750 MG PO; +SENOKOT-S TABLE1 TAB PO; +TOPROL XL25 MG PO
[2017-12-24 09:19] LABS: HEMATOCRIT 32.2 % (42.0-54.0); HEMOGLOBIN 10.1 g/dL (13.5-17.5); MCH 29.8 pg (26.0-34.0); MCHC 31.4 g/dL (31.0-37.0); MEAN PLATELET VOLUME 8.3 fL (7.4-10.4); RBC 3.39 10x6/uL (4.20-6.10); RDW 13.3 % (11.5-14.5)
[2017-12-24 09:33] LABS: ALBUMIN 2.9 g/dL (3.4-5.0); ANION GAP 13.1 mmol/L (8-16); BILIRUBIN - TOTAL 0.2 mg/dL (0.2-1.3); CALCIUM 8.8 mg/dL (8.5-10.1); CARBON DIOXIDE 25.9 mmol/L (21.0-32.0); CREATININE - SERUM 1.2 mg/dL (0.6-1.3); PROTEIN - SERUM 7.1 g/dL (6.4-8.2)
== END | disposition home or self-care (01) ==
LOC: D.LAB 08:47
PROVIDERS: Thoracic Surgery (Cardiothoracic Vascular Surgery)
DX: J91.8 Pleural effusion in other conditions classified elsewhere (principal); D64.9 Anemia, unspecified

== ENCOUNTER 2018-01-05 18:00 | Inpatient (IN) | payer MEDICAID ==
[~2018-01-05] VITALS: Ht 177.8 cm; Wt 82.3 kg
[~2018-01-05 18:00] MED LIST changes: -LEVAQUIN750 MG PO
[2018-01-05 19:50] LABS: BASOPHILS 0.8 % (0-2); EOSINOPHILS 3.4 % (0-7); HEMATOCRIT 36.9 % (42.0-54.0); IMMATURE GRANULOCYTES 0.2 % (0-5); LYMPHOCYTES 16.3 % (15-50); MCH 30.1 pg (26.0-34.0); MCHC 32.5 g/dL (31.0-37.0); MCV 92.5 fL (80.0-100.0); MEAN PLATELET VOLUME 8.6 fL (7.4-10.4); MONOCYTES 9.1 % (2-11); NEUTROPHILS 70.2 % (40-80); PLATELET COUNT 434 10x3/uL (130-400); RBC 3.99 10x6/uL (4.20-6.10); RDW 13.9 % (11.5-14.5)
[2018-01-05 19:59] LABS: APTT 28.5 SECONDS (22.8-39.4); INR 1.02 (0.85-1.17)
[2018-01-05 20:12] LABS: ALBUMIN 3.3 g/dL (3.4-5.0); ALKALINE PHOSPHATASE 98 U/L (46-116); ALT (SGPT) 38 U/L (10-68); BILIRUBIN - TOTAL 0.25 mg/dL (0.2-1.3); CALC OSMOLALITY 280 mosm/kg (275-300); CALCIUM 8.7 mg/dL (8.5-10.1); CARBON DIOXIDE 25.3 mmol/L (21.0-32.0); CHLORIDE - SERUM 104 mmol/L (98-107); CREATININE - SERUM 1.2 mg/dL (0.6-1.3); GLUCOSE 99 mg/dL (74-106); SODIUM 140 mmol/L (136-145); UREA NITROGEN 17 mg/dL (7-18); eGFR NON AFRICAN AMERICAN 67 mL/min (90-120)
[2018-01-05 20:23] LABS: CKMB 1.1 U/L (0.0-3.6); CREATINE KINASE 97 UL (21-232); PRO BNP 480 pg/mL (0-125); TROPONIN-I 0.027 ng/mL (0.000-0.060)
[2018-01-05 22:15] LABS: TROPONIN-I 0.016 ng/mL (0.000-0.060)
[2018-01-06] VITALS (7 sets, daily range): BP systolic 96–181; BP diastolic 58–93; Ht 177.8 cm; Wt 82.3 kg
[2018-01-06 04:32] LABS: BASOPHILS 0.7 % (0-2); EOSINOPHILS 2.9 % (0-7); HEMATOCRIT 38.1 % (42.0-54.0); HEMOGLOBIN 12.3 g/dL (13.5-17.5); IMMATURE GRANULOCYTES 0.3 % (0-5); LYMPHOCYTES 18.6 % (15-50); MCHC 32.3 g/dL (31.0-37.0); MCV 92.9 fL (80.0-100.0); MEAN PLATELET VOLUME 8.7 fL (7.4-10.4); MONOCYTES 9.7 % (2-11); NEUTROPHILS 67.8 % (40-80); PLATELET COUNT 464 10x3/uL (130-400); RDW 13.8 % (11.5-14.5); WBC 10.9 10x3/uL (4.8-10.8)
[2018-01-06 05:04] LABS: CALC OSMOLALITY 276 mosm/kg (275-300); CALCIUM 8.8 mg/dL (8.5-10.1); CARBON DIOXIDE 26.4 mmol/L (21.0-32.0); CHLORIDE - SERUM 102 mmol/L (98-107); CREATINE KINASE 90 UL (21-232); CREATININE - SERUM 1.1 mg/dL (0.6-1.3); GLUCOSE 85 mg/dL (74-106); POTASSIUM - SERUM 4.4 mmol/L (3.5-5.1); SODIUM 138 mmol/L (136-145); UREA NITROGEN 18 mg/dL (7-18); eGFR NON AFRICAN AMERICAN 75 mL/min (90-120)
[2018-01-06 09:56] LABS: CKMB 0.9 U/L (0.0-3.6); CREATINE KINASE 77 UL (21-232); TROPONIN-I 0.021 ng/mL (0.000-0.060)
[2018-01-07 01:40] VITALS: BP 96/63
[2018-01-07 05:35] VITALS: BP 103/65
[2018-01-07 06:07] LABS: BASOPHILS 0.1 % (0-2); EOSINOPHILS 0.2 % (0-7); HEMATOCRIT 36.6 % (42.0-54.0); HEMOGLOBIN 11.8 g/dL (13.5-17.5); IMMATURE GRANULOCYTES 0.3 % (0-5); LYMPHOCYTES 11.5 % (15-50); MCH 29.7 pg (26.0-34.0); MCHC 32.2 g/dL (31.0-37.0); MCV 92.2 fL (80.0-100.0); MONOCYTES 7.2 % (2-11); NEUTROPHILS 80.7 % (40-80); PLATELET COUNT 459 10x3/uL (130-400); RBC 3.97 10x6/uL (4.20-6.10); RDW 13.8 % (11.5-14.5)
[2018-01-07 06:08] LABS: ANION GAP 14.9 mmol/L (8-16); CALCIUM 8.8 mg/dL (8.5-10.1); CREATININE - SERUM 1.1 mg/dL (0.6-1.3); POTASSIUM - SERUM 3.9 mmol/L (3.5-5.1)
[2018-01-07 06:15] LABS: WBC 14.3 10x3/uL (4.8-10.8)
[2018-01-07 08:57] VITALS: BP 116/77
[2018-01-07 12:16] VITALS: BP 110/60
[2018-01-07 15:09] LABS: APPEARANCE CLEAR (CLEAR); BILIRUBIN NEGATIVE (NEGATIVE); COLOR YELLOW (YELLOW); GLUCOSE NEGATIVE (NEGATIVE); KETONE NEGATIVE (NEGATIVE); NITRITE NEGATIVE (NEGATIVE); PROTEIN NEGATIVE (NEGATIVE); SPECIFIC GRAVITY 1.015 (1.005-1.020)
[2018-01-07 16:10] VITALS: BP 105/66
[2018-01-07 20:00] VITALS: BP 102/61
[2018-01-08 04:00] VITALS: BP 101/71
[2018-01-08 05:57] LABS: BASOPHILS 1.1 % (0-2); EOSINOPHILS 2.5 % (0-7); HEMATOCRIT 37.3 % (42.0-54.0); HEMOGLOBIN 12.1 g/dL (13.5-17.5); IMMATURE GRANULOCYTES 0.2 % (0-5); LYMPHOCYTES 19.9 % (15-50); MCHC 32.4 g/dL (31.0-37.0); MCV 92.3 fL (80.0-100.0); MEAN PLATELET VOLUME 8.7 fL (7.4-10.4); MONOCYTES 7.3 % (2-11); PLATELET COUNT 388 10x3/uL (130-400); RBC 4.04 10x6/uL (4.20-6.10); RDW 13.9 % (11.5-14.5)
[2018-01-08 05:59] LABS: WBC 9.2 10x3/uL (4.8-10.8)
[2018-01-08 06:27] LABS: ANION GAP 13.4 mmol/L (8-16); CALCIUM 8.6 mg/dL (8.5-10.1); CREATININE - SERUM 1.1 mg/dL (0.6-1.3); POTASSIUM - SERUM 4.4 mmol/L (3.5-5.1)
[2018-01-08 09:35] VITALS: BP 113/73
[2018-01-08 10:50] VITALS: BP 132/68
[2018-01-08] MEDS ORDERED: LEVAQUIN750 MG PO (13:56)
== END 2018-01-08 17:06 | disposition home or self-care (01) | DRG 190 ==
LOC: D.ER 18:00 → D.EDHOLD 21:37 → D.M2 21:37
PROVIDERS: Emergency Medicine; Family Medicine; Internal Medicine Nephrology
DX: J44.0 Chronic obstructive pulmonary disease with (acute) lower respiratory infection (principal); J18.9 Pneumonia, unspecified organism; I25.10 Atherosclerotic heart disease of native coronary artery without angina pectoris; Z95.1 Presence of aortocoronary bypass graft; I48.0 Paroxysmal atrial fibrillation; I10 Essential (primary) hypertension; E78.5 Hyperlipidemia, unspecified

== ENCOUNTER → 2018-01-21 08:46 | Outpatient (CLI) | payer MEDICAID ==
[2018-01-06 11:51] VITALS: BMI 28.3
[~2018-01-21 08:46] MED LIST changes: +LEVAQUIN750 MG PO
== END | disposition home or self-care (01) ==
LOC: D.RAD 08:45
DX: J90 Pleural effusion, not elsewhere classified (principal)

== ENCOUNTER → 2018-02-05 12:01 | Outpatient (CLI) | payer MEDICAID ==
[2018-01-06 11:51] VITALS: BMI 28.3
== END | disposition home or self-care (01) ==
LOC: D.US 12:00
DX: I73.9 Peripheral vascular disease, unspecified (principal); M79.604 Pain in right leg

== ENCOUNTER → 2018-02-16 11:00 | Outpatient (CLI) | payer MEDICAID ==
[~2018-02-16] VITALS: Ht 177.8 cm; Wt 81.8 kg
--- NOTE | ~2018-02-16 | HEMODYNAMI ---
PATIENT:OLI PATTERSON MEDICAL RECORD: [id number] : 65 LOCATION:[facility] ADMISSION DATE: 02/16/18 Generatedon:02/16/201813:07 Patient name: OLI PATTERSON Patient #: [id number] SSN: : 1965 Date of study: 02/16/2018 Page: Of Hemodynamic Procedure Report Patient Data Patient Demographics Procedure consent was obtained First Name: OLI Gender: Male Last Name: LEONARDO : 1965 [facility] Initial: ASCENCION Age: 52 year(s) Patient #: [id number] Race: Unknown Additional ID: [id number] Contact details Address: [facility] [address] State: [place] City: [place] Zip code: [address] Past Medical History Allergies Allergen Reaction Date Comments Reported Penicillins 11/24/2017 Penicillins 02/16/2018 Admission Admission Data Admission Date: 02/16/2018 Admission Time: 11:00 Lab Results Lab Result Date: 02/16/2018 Lab Result Time: 0:00 Biochemistry Name Units Result Min Max BUN mg/dl 16 --(---*)-- 7 18 Creatinine mg/dl 1 --(--*-)-- 0.6 1.3 CBC Name Units Result Min Max Hemoglobin g/dl 14 --(*---)-- 13.5 17.5 Procedure Procedure Types Cath Procedure Peripheral Cath Diagnostic Procedure Cath Peripheral Zsblu-Knasyof-Smj-Off Procedure Description Procedure Date Procedure Date: 02/16/2018 Procedure Start Time: 12:56 Procedure End Time: 13:06 Procedure Staff Name Function Arley Medrano MD Performing Physician Rach Herrera RT Monitor Samuel Finn RN Nurse Kylie Herring RT Scrub Procedure Data Cath Procedure Fluoroscopy Diagnostic fluoroscopy Total fluoroscopy Time: 0.9 time: 0.9 min min Diagnostic fluoroscopy Total fluoroscopy dose: 158 dose: 158 mGy mGy Contrast Material Contrast Material Type Amount (ml) Isovue 370 78 Entry Location Entry Primary Successful Side Size Upsize Upsize Entry Closure Succes sful Closure Location (Fr) 1 (Fr) 2 (Fr) Remarks Device Remarks Femoral Left 5 Fr Exoseal artery Estimated blood loss: 5 ml Diagnostic catheters Device Type Used For End Catheter Placement DIAGNOSTIC UF 5Fr Procedure catheter ([id number]) Procedure Complications No complications Procedure Medications Medication Administration Route Dosage 0.9% NaCl I.V. 100 ml/hr Oxygen etCO2 Nasal cannula 2 l/min Heparin Flush Bag added to field 2 bags (1000units/500ml NS) Lidocaine 2% added to field 20 Versed I.V. 2 mg Fentanyl I.V. 100 mcg Versed I.V. 2 mg Fentanyl I.V. 100 mcg Versed I.V. 1 mg Hemodynamics Rest Pre Cath Intra NCS Post Cath Vital Signs Time Heart Resp SPO2 etCO2 NIBP (mmHg) Rhythm Pain Sedation Rate (ipm) (%) (mmHg) Status Level (bpm) 12:46:32 75 20 100 30 116/71(88) NSR 0 (11) 10(A) , No pain 12:51:09 78 19 98 32.3 109/70(82) NSR 0 (11) 10(A) , No pain 12:55:39 74 21 98 30.8 110/65(92) NSR 0 (11) 10(A) , No pain 13:05:47 81 22 2.2 115/78(106) NSR 0 (11) 10(A) , No pain Medications Time Medication Route Dose Verified Delivered Reason Notes Eff ectiveness by by 12:46:04 0.9% NaCl I.V. 100 Samuel Samuel Per ml/hr Aakash Finn physician RN RN 12:46:15 Oxygen etCO2 2 Samuel Samuel Per Nasal l/min Aakash Lawrenceigan physician cannula RN RN 12:46:28 Heparin Flush added 2 Samuel Samuel used for Bag to bags Lorigan Lorigan procedure (1000units/500ml field RN RN NS) 12:46:40 Lidocaine 2% added 20ml Samuel Samuel for local to vial Lorigan Lorigan anesthetic field RN RN 12:51:27 Versed I.V. 2 mg Samuel Samuel for Lorigan Lorigan sedation RN RN 12:51:36 Fentanyl I.V. 100 Samuel Samuel for mcg Lorigan Lorigan sedation RN RN 12:54:17 Versed I.V. 2 mg Samuel Samuel for Lorigan Lorigan sedation RN RN 12:55:42 Fentanyl I.V. 100 Samuel Samuel for mcg Lorigan Lorigan sedation RN RN 12:57:25 Versed I.V. 1 mg Samuel Samuel for Lorigan Lorigan sedation RN chinese herbalist Log Time Note 12:30:55 Kylie Herring RT(R) sent for patient. Start room use. 12:31:43 Signed procedure consent form obtained from patient. 12:31:55 H&P Date Dictated: 02/05/2018 Within 30 days and on chart., H&P Addendum completed by physician on day of procedure. (MUST COMPLETE FOR ALL OUTPATIENTS). 12:32:11 Patient allergic to Penicillins 12:34:15 Lab Result : Creatinine 1 mg/dl 12:34:15 Lab Result : BUN 16 mg/dl 12:34:15 Lab Result : Hemoglobin 14 g/dl 12:35:35 Time tracking: Regular hours (M-F 7:00 - 5:00) 12:35:39 Plan of Care:Hemodynamics will remain stable., Cardiac rhythm will remain stable., Comfort level will be maintained., Respiratory function will remain adequate., Patient/ family verbilizes understanding of procedure., Procedure tolerated without complication., Recovers from procedure without complications.. 12:36:44 Patient received from Pre/Post Procedure Room to CCL 1 Alert and oriented. Tansferred to table in Supine position. 12:36:45 Warm blankets applied, and marilyn hugger turned on for patient comfort. 12:36:46 Correct patient and procedure confirmed by team. 12:36:47 ECG and BP/O2 sat monitors applied to patient. 12:41:10 Vital chart was started 12:41:11 Full Disclosure recording started 12:41:15 Rhythm: sinus rhythm 12:45:41 Vital chart was stopped 12:45:45 Vital chart was started 12:46:04 0.9% NaCl 100 ml/hr I.V. was administered by Samuel Finn RN; Per physician; 12:46:15 Oxygen 2 l/min etCO2 Nasal cannula was administered by Samuel Finn RN; Per physician; 12:46:28 Heparin Flush Bag (1000units/500ml NS) 2 bags added to field was administered by Samuel Finn RN; used for procedure; 12:46:40 Lidocaine 2% 20ml vial added to field was administered by Samuel Finn RN; for local anesthetic; 12:48:10 Pre-procedure instructions explained to patient. 12:48:11 Pre-op teaching completed and patient verbalized understanding. 12:48:17 Family in patients room. 12:48:18 Patient NPO since Midnight. 12:48:20 Is the patient allergic to Iodine/contrast media? No. 12:48:21 Is patient on blood thinner?No 12:48:23 Patient diabetic? No. 12:48:27 Previous problem with sedation/anesthesia? No ? 12:48:29 Snore? No 12:48:30 Sleep apnea? No 12:48:32 Deviated septum? No 12:48:32 Opens mouth fully? Yes 12:48:33 Sticks out tongue? Yes 12:48:35 Airway obstruction? No ? 12:48:36 Dentures? No ? 12:48:45 Patient pain scale 0/10 ?. 12:49:01 IV patent on arrival in left hand with 0.9% NaCl at [facility]. 12:49:04 Lab results completed and on chart. 12:49:10 Bilateral groins area was prepped with chlora-prep and draped in sterile fashion 12:49:11 Alarms reviewed by R. N. 12:49:11 Sharps counted by scrub and verified by R.N. 12:49:22 Use device set CATH PACK 12:49:24 ACIST Syringe (30072) opened to sterile field. 12:49:24 ACIST Hand Control (73296) opened to sterile field. 12:49:25 ACIST Manifold (78938) opened to sterile field. 12:49:25 Medline Cath Pack ([id number]) opened to sterile field. 12:49:26 Bag Decanter (2002) opened to sterile field. 12:49:27 DIAGNOSTIC WIRE .035 260cm J wire (516612) opened to sterile field. 12:49:34 SHEATH 5FR [place] (DYF993) opened to sterile field. 12:50:02 --------ALL STOP TIME OUT------ 12:50:03 Final Timeout: patient, procedure, and site verified with staff and physician. All members of the team are in agreement. 12:50:05 Bilateral groins site verified by team. 12:50:07 Physical assessment completed. ASA score P 2 - A patient with mild systemic disease as per Arley Medrano MD. 12:50:11 Sedation plan: IV Moderate Sedation Medication:Versed, Fentanyl 12:51:27 Versed 2 mg I.V. was administered by Samuel Finn RN; for sedation; 12:51:36 Fentanyl 100 mcg I.V. was administered by Samuel Finn RN; for sedation; 12:54:17 Versed 2 mg I.V. was administered by Samuel Finn RN; for sedation; 12:55:42 Fentanyl 100 mcg I.V. was administered by Samuel Finn RN; for sedation; 12:56:11 Zero performed for pressure channel P1 12:56:17 Procedure started. 12:56:22 Local anesthetic to left femerol artery with Lidocaine 2% by Arley Medrano MD.INITIAL ACCESS ONLY 12:56:28 Zero performed for pressure channel P1 12:57:12 A 5 Fr sheath was inserted into the Left Femoral artery 12:57:25 Versed 1 mg I.V. was administered by Samuel Finn RN; for sedation; 12:57:50 A DIAGNOSTIC UF 5Fr catheter ([id number]) was advanced over the wire and used for Procedure. 12:58:40 Abdominal angiogram w/ runoff was performed. 12:59:19 Left leg runoff performed. 13:00:44 Right leg runoff performed. 13:01:12 Catheter removed. 13:01:46 EXOSEAL 5Fr (EX500) opened to sterile field. 13:02:08 Sheath removed intact; hemostasis achieved with Exoseal to the Left Femoral artery. 13:02:45 Procedure ended.(Physican Out) 13:04:21 Fluoroscopy time 00.90 minutes. 13:04:25 Flurop Dose total: 158 13:04:25 Fluoroscopy dose: 158 mGy 13:04:31 Contrast amount:Isovue 370 78ml. 13:04:33 Sharps counted by scrub and verified by R.N. 13:04:36 Post-op/insertion site Left Femoral artery dressed using a 4 x 4 and Tegaderm. 13:04:41 Post right femoral artery:stable, soft, clean and dry 13:04:45 Post-procedure physical assessment completed. ASA score P 2 - A patient with mild systemic disease as per Arley Medrano MD. 13:04:48 Post procedure rhythm: unchanged. 13:04:50 Estimated blood loss: 5 ml 13:04:52 Post procedure instruction explained to patient.Patient verbalizes understanding. 13:04:52 Patient needs reinforcement of post procedure teaching. 13:05:46 Procedure and supply charges have been captured, reviewed, submitted and are correct. 13:05:49 Procedure Complication : No complications 13:06:00 See physician's report for complete and final results. 13:06:01 Report given to Pre/Post Procedure Room. 13:06:05 Patient transfered to Pre/Post Procedure Room with Bed. 13:06:07 Procedure ended. 13:06:07 Full Disclosure recording stopped 13:06:10 End room use (Document Last) 13:07:55 Vital chart was stopped Device Usage Item Name Manufacture Quantity Catalog Hospital Part Current Minimal L ot# / Number Charge Number Stock Stock Serial# Code ACIST Acist 1 37566 [id number] 698532 150019 20 Syringe Medical (25357) Systems Inc ACIST Hand Acist 1 09002 962721 323885 939409 5 Control Medical (01527) Systems Inc ACIST Acist 1 70829 856499 990879 745596 5 Manifold Medical (97974) Systems Inc Medline Cardinal 1 [id number] 897997 15439 300604 5 Cath Pack Health ([id number]) Bag Microtek 1 2001S 997032 91095 209501 5 Decanter Medical Inc. (2001S) DIAGNOSTIC [place] 1 215955 963998 713937 456666 30 WIRE .035 260cm J wire (897826) SHEATH 5FR Terumo 1 ZXV917 672811 006332 668439 40 [place] (OKU680) DIAGNOSTIC Cardinal 1 [id number] 768488 858809 779286 10 UF 5Fr YES.TAP catheter (659046R5) EXOSEAL 5Fr Cardinal 1 EX500 763489 971450 683509 10 (EX500) Health Signature Audit [place] Stage Time Signature Unsigned Intra-Procedure 02/16/2018 Rach Herrera 1:07:53 PM RT(R) Signatures Monitor : Rach Sharon Signature : RT Date : Time : [place] [address] [place] [address]
[2018-02-16 11:53] LABS: BASOPHILS 0.7 % (0-2); EOSINOPHILS 2.4 % (0-7); HEMATOCRIT 41.9 % (42.0-54.0); IMMATURE GRANULOCYTES 0.2 % (0-5); LYMPHOCYTES 24.2 % (15-50); MCH 30.1 pg (26.0-34.0); MCHC 33.4 g/dL (31.0-37.0); MCV 90.1 fL (80.0-100.0); MEAN PLATELET VOLUME 9.2 fL (7.4-10.4); MONOCYTES 12.7 % (2-11); NEUTROPHILS 59.8 % (40-80); PLATELET COUNT 356 10x3/uL (130-400); RBC 4.65 10x6/uL (4.20-6.10); RDW 14.5 % (11.5-14.5)
[2018-02-16 11:59] VITALS: BP 110/64; Ht 177.8 cm; Wt 81.8 kg
[2018-02-16 12:13] LABS: CALC OSMOLALITY 278 mosm/kg (275-300); CALCIUM 9.5 mg/dL (8.5-10.1); CARBON DIOXIDE 25.5 mmol/L (21.0-32.0); CHLORIDE - SERUM 104 mmol/L (98-107); GLUCOSE 95 mg/dL (74-106); POTASSIUM - SERUM 4.2 mmol/L (3.5-5.1); SODIUM 139 mmol/L (136-145); UREA NITROGEN 16 mg/dL (7-18); eGFR NON AFRICAN AMERICAN 83 mL/min (90-120)
== END | disposition home or self-care (01) ==
LOC: D.CATH 11:00
PROVIDERS: Internal Medicine Cardiovascular Disease
DX: M79.606 Pain in leg, unspecified (principal); Z01.812 Encounter for preprocedural laboratory examination

== ENCOUNTER → 2018-05-26 09:13 | Outpatient (CLI) | payer MEDICAID | END | disposition home or self-care (01) | LOC: D.NM 09:13 | DX: E05.90 Thyrotoxicosis, unspecified without thyrotoxic crisis or storm (principal) ==

== ENCOUNTER 2019-01-23 21:02 | Emergency (ER) | payer MEDICAID ==
[2019-01-23] MEDS ORDERED: ROBAXIN500 MG PO (22:01)
[2019-01-23] MEDS ORDERED: VOLTAREN75 MG PO (22:01)
[2019-01-23] MEDS ORDERED: TYLENOL W/CODEI1 TAB PO (23:15)
[2019-01-23 23:47] VITALS: BP 110/73
== END 2019-01-23 23:47 | disposition home or self-care (01) ==
LOC: D.ER 21:02
DX: S22.31XA Fracture of one rib, right side, initial encounter for closed fracture (principal); V86.59XA Driver of other special all-terrain or other off-road motor vehicle injured in nontraffic accident, initial encounter; Y93.89 Activity, other specified; Y92.89 Other specified places as the place of occurrence of the external cause

== ENCOUNTER 2019-01-24 22:23 | Inpatient (IN) | payer MEDICAID ==
[~2019-01-24 22:23] MED LIST changes: +ROBAXIN500 MG PO; +TYLENOL W/CODEI1 TAB PO; +VOLTAREN75 MG PO
[2019-01-24 22:50] VITALS: BP 143/90
[2019-01-24 23:04] LABS: BASOPHILS 0.3 % (0-2); EOSINOPHILS 0.8 % (0-7); HEMATOCRIT 43.1 % (42.0-54.0); HEMOGLOBIN 14.6 g/dL (13.5-17.5); IMMATURE GRANULOCYTES 0.3 % (0-5); LYMPHOCYTES 11.4 % (15-50); MCH 31.9 pg (26.0-34.0); MCHC 33.9 g/dL (31.0-37.0); MCV 94.3 fL (80.0-100.0); MEAN PLATELET VOLUME 9.6 fL (7.4-10.4); MONOCYTES 6.7 % (2-11); NEUTROPHILS 80.5 % (40-80); RBC 4.57 10x6/uL (4.20-6.10); RDW 12.9 % (11.5-14.5); WBC 14.6 10x3/uL (4.8-10.8)
[2019-01-24 23:10] VITALS: BP 145/84
[2019-01-24 23:12] LABS: PLATELET COUNT 266 10x3/uL (130-400)
[2019-01-24 23:16] LABS: ALBUMIN 3.3 g/dL (3.4-5.0); ALKALINE PHOSPHATASE 105 U/L (46-116); ALT (SGPT) 33 U/L (10-68); BILIRUBIN - TOTAL 0.58 mg/dL (0.2-1.3); CALC OSMOLALITY 281 mosm/kg (275-300); CALCIUM 8.6 mg/dL (8.5-10.1); CARBON DIOXIDE 25.9 mmol/L (21.0-32.0); CHLORIDE - SERUM 106 mmol/L (98-107); GLUCOSE 89 mg/dL (74-106); POTASSIUM - SERUM 3.7 mmol/L (3.5-5.1); PROTEIN - SERUM 7.3 g/dL (6.4-8.2); SODIUM 141 mmol/L (136-145); UREA NITROGEN 17 mg/dL (7-18); eGFR NON AFRICAN AMERICAN 83 mL/min (90-120)
[2019-01-24 23:39] LABS: CREATINE KINASE 326 UL (21-232); LIPASE 128 U/L (73-393); PRO BNP 263 pg/mL (0-125); TROPONIN-I < 0.017 ng/mL (0.000-0.060)
[2019-01-24 23:40] LABS: CKMB 3.4 U/L (0.0-3.6)
--- NOTE | 2019-01-25 00:37 | NUR ---
ARRIVED ON FLOOR VIA WC. SELF AMBULATED TO BED. ORIENTED TO ROOM AND CALL LIGHT. IV SL TO LEFT AC. CHEST SPOT SHAVED FOR TELEMETRY. ASSESSMENT AND HISTORY PER FLOW SHEET. NO NEEDS VOICED AT THIS TIME. CALL LIGHT AT SIDE.
[2019-01-25 01:04] VITALS: BP 163/97; BMI 26.6
[2019-01-25 03:00] VITALS: BP 123/66
--- NOTE | 2019-01-25 04:46 | NUR ---
I have reviewed this patient and I concur with the Shift Assessment completed by the Licensed Practical Nurse today this shift.
--- NOTE | 2019-01-25 07:24 | NUR ---
ALERT AND ORIENTED X 3. LUNGS WITH CRACKLES BILATERALLY. HEART SOUNDS S1 AND S2 HEARD IN ALL SCHMITZ. BOWEL SOUNDS ACTIVE X 4. SKIN INTACT WITHOUT REDNESS. ASSISTED TO BATHROOM PER REQUEST. RIB PAIN NOTED. TELEMETRY IN PLACE. DENIES FURTHER NEEDS. WILL CONTINUE TO MONITOR.
[2019-01-25 08:15] VITALS: BP 129/78
[2019-01-25] MEDS ORDERED: ALBUTEROL SULF8.5 GM (09:46)
[2019-01-25 11:22] LABS: HEMATOCRIT 39.9 % (42.0-54.0); HEMOGLOBIN 13.6 g/dL (13.5-17.5); MCH 31.9 pg (26.0-34.0); MCHC 34.1 g/dL (31.0-37.0); MCV 93.7 fL (80.0-100.0); MEAN PLATELET VOLUME 9.7 fL (7.4-10.4); PLATELET COUNT 238 10x3/uL (130-400); RBC 4.26 10x6/uL (4.20-6.10); RDW 12.9 % (11.5-14.5); WBC 24.2 10x3/uL (4.8-10.8)
--- NOTE | 2019-01-25 11:51 | NUR ---
RESTING IN BED. EDUCATED ON NEW ANTIBIOTIC THERAPY AND NEW PO MEDICATIONS. DENIES FURTHER QUESTIONS. DENIES NEEDS. WILL CONTINUE TO MONITOR.
[2019-01-25 13:38] LABS: LYMPHOCYTES 9 % (15-50); MONOCYTES 9 % (2-11); NEUTROPHILS 70 % (40-80); PLATELET ESTIMATE NORMAL; ROULEAUX OCC
[2019-01-25 13:55] VITALS: BP 156/65
[2019-01-25 15:05] VITALS: BMI 26.5
[2019-01-25 15:53] VITALS: BMI 26.5
--- NOTE | 2019-01-25 16:41 | NUR ---
PATIENT SITTING IN BED. FRIEND AT BEDSIDE. DENIES NEEDS. WILL CONTINUE TO MONITOR.
[2019-01-25 17:27] VITALS: BP 139/63
--- NOTE | 2019-01-25 17:49 | NUR ---
SITTING IN BED. DINNER AT BEDSIDE. DENIES NEEDS. WILL CONTINUE TO MONITOR.
[2019-01-25 20:00] VITALS: BP 110/70
[2019-01-26] VITALS: BP 136/74
--- NOTE | 2019-01-26 02:26 | NUR ---
191)REC'D.IN BED SUPINE POSITION WATCHING TV.MONITOR CONTINUES TO SHOW SINUS RHYTHM RATE OF 74. DENIES ANY FURTHER DISCOMFORT AT PRESENT TIME.WILL CONTINUE TO MONITOR FOR ANY CHGES AND FOLLOW CURRENT PLAN OF CARE
[2019-01-26 05:30] VITALS: BP 124/64
[2019-01-26 06:34] LABS: BASOPHILS 0.3 % (0-2); EOSINOPHILS 0.4 % (0-7); HEMOGLOBIN 13.2 g/dL (13.5-17.5); IMMATURE GRANULOCYTES 0.4 % (0-5); LYMPHOCYTES 7.3 % (15-50); MCH 31.2 pg (26.0-34.0); MCHC 33.8 g/dL (31.0-37.0); MCV 92.2 fL (80.0-100.0); MEAN PLATELET VOLUME 9.4 fL (7.4-10.4); MONOCYTES 3.7 % (2-11); NEUTROPHILS 87.9 % (40-80); PLATELET COUNT 203 10x3/uL (130-400); RBC 4.23 10x6/uL (4.20-6.10); WBC 18.4 10x3/uL (4.8-10.8)
--- NOTE | 2019-01-26 07:11 | NUR ---
I have reviewed this patient and I concur with the Shift Assessment completed by the Licensed Practical Nurse today this shift.
[2019-01-26 07:39] LABS: ALBUMIN 2.7 g/dL (3.4-5.0); ANION GAP 12.6 mmol/L (8-16); BILIRUBIN - TOTAL 0.82 mg/dL (0.2-1.3); CALCIUM 8.3 mg/dL (8.5-10.1); CARBON DIOXIDE 24.3 mmol/L (21.0-32.0); CREATININE - SERUM 1.1 mg/dL (0.6-1.3); POTASSIUM - SERUM 3.9 mmol/L (3.5-5.1); PROTEIN - SERUM 6.5 g/dL (6.4-8.2)
[2019-01-26 09:58] VITALS: BP 132/78
[2019-01-26 11:53] VITALS: BP 113/74
--- NOTE | 2019-01-26 14:24 | NUR ---
PT RESTING QUIETLY WITH EYES CLOSED. 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 RESP EVEN AND UNLABORED. CALL LIGHT IN REACH
[2019-01-26 16:57] VITALS: BP 146/85
--- NOTE | 2019-01-26 21:00 | NUR ---
PT REQUESTS A JELLO AND IS TOLERATING WELL.
[2019-01-26 21:22] VITALS: BP 117/72
--- NOTE | 2019-01-26 22:30 | NUR ---
PT STATES HE IS STARVING AND UNSATISFIED WITH HIS CLEAR LIQUID DIET. INFORMED THAT THE DIET ORDER STATES "ADVANCE TOLERATED" AND HE COULD ADVANCE TO FULL LIQUIDS. PT REQUESTED CHOCOLATE PUDDING AND IS TOLERATING WELL SO FAR. WILL CONTINUE TO MONITOR.
--- NOTE | 2019-01-27 01:05 | NUR ---
PT REQUESTS A JELLO AND IS TOLERATING WELL.
[2019-01-27 05:05] VITALS: BP 111/69
[2019-01-27 06:14] LABS: BASOPHILS 0.3 % (0-2); EOSINOPHILS 1.7 % (0-7); HEMATOCRIT 40.4 % (42.0-54.0); HEMOGLOBIN 13.8 g/dL (13.5-17.5); IMMATURE GRANULOCYTES 0.2 % (0-5); LYMPHOCYTES 10.1 % (15-50); MCH 31.8 pg (26.0-34.0); MCHC 34.2 g/dL (31.0-37.0); MCV 93.1 fL (80.0-100.0); MEAN PLATELET VOLUME 9.6 fL (7.4-10.4); MONOCYTES 9.9 % (2-11); NEUTROPHILS 77.8 % (40-80); PLATELET COUNT 229 10x3/uL (130-400); RBC 4.34 10x6/uL (4.20-6.10)
[2019-01-27 06:35] LABS: WBC 10.4 10x3/uL (4.8-10.8)
[2019-01-27 06:46] LABS: ALBUMIN 2.7 g/dL (3.4-5.0); ALKALINE PHOSPHATASE 82 U/L (46-116); ALT (SGPT) 25 U/L (10-68); BILIRUBIN - TOTAL 0.63 mg/dL (0.2-1.3); CALC OSMOLALITY 263 mosm/kg (275-300); CALCIUM 8.7 mg/dL (8.5-10.1); CARBON DIOXIDE 25.9 mmol/L (21.0-32.0); CHLORIDE - SERUM 99 mmol/L (98-107); GLUCOSE 96 mg/dL (74-106); POTASSIUM - SERUM 3.8 mmol/L (3.5-5.1); SODIUM 132 mmol/L (136-145); eGFR NON AFRICAN AMERICAN 83 mL/min (90-120)
[2019-01-27 06:49] LABS: UREA NITROGEN 11 mg/dL (7-18)
--- NOTE | 2019-01-27 07:30 | NUR ---
I have reviewed this patient and I concur with the Shift Assessment completed by the Licensed Practical Nurse today this shift.
[2019-01-27] MEDS ORDERED: SYNTHROID50 MCG PO ×2 (09:55)
--- NOTE | 2019-01-27 10:07 | NUR ---
PT INQUIRED ON HIS SYNTHROID, MEDICATION WAS NOT RESTARTED, ADDED TO HOME MEDS AND SET REVIEW WILL MENTION TO HOSPITALISTS ON ROUNDS
[2019-01-27 10:16] VITALS: BP 115/72
[2019-01-27 12:48] VITALS: BP 117/75
--- NOTE | 2019-01-27 13:51 | NUR ---
I have reviewed this patient and I concur with the Shift Assessment completed by the Licensed Practical Nurse today this shift.
[2019-01-27 15:46] VITALS: BP 127/68
--- NOTE | 2019-01-27 16:30 | NUR ---
PT LYING IN BED C/O PAIN IN RIBS AND MORHINE ONLY HELPS A LITTLE. OFFERED BOLUS. PT REFUSED AT THIS TIME, STATED HE HARDLY SLEPT LAST NIGHT AND JUST TIRED, CONTINUE WITH PLAN OF CARE
--- NOTE | 2019-01-27 17:46 | NUR ---
PT LUING IN BED, STATES RIBS ARE STILL HURTING TERRIBLY, NO NEEDS VOICED, AT THIS TIME. CONTINUE WITH PLAN OF CARE
[2019-01-27 22:12] VITALS: BP 110/64
[2019-01-28 00:45] VITALS: BP 120/60
[2019-01-28 05:12] VITALS: BP 117/69
[2019-01-28 05:30] LABS: BASOPHILS 0.4 % (0-2); EOSINOPHILS 1.6 % (0-7); HEMATOCRIT 36.8 % (42.0-54.0); HEMOGLOBIN 12.6 g/dL (13.5-17.5); IMMATURE GRANULOCYTES 0.2 % (0-5); MCH 31.6 pg (26.0-34.0); MCHC 34.2 g/dL (31.0-37.0); MCV 92.2 fL (80.0-100.0); MEAN PLATELET VOLUME 9.5 fL (7.4-10.4); MONOCYTES 8.6 % (2-11); NEUTROPHILS 77.2 % (40-80); PLATELET COUNT 239 10x3/uL (130-400); RBC 3.99 10x6/uL (4.20-6.10); RDW 12.9 % (11.5-14.5); WBC 9.2 10x3/uL (4.8-10.8)
[2019-01-28 06:00] LABS: ALBUMIN 2.4 g/dL (3.4-5.0); ALKALINE PHOSPHATASE 81 U/L (46-116); ALT (SGPT) 27 U/L (10-68); BILIRUBIN - TOTAL 0.48 mg/dL (0.2-1.3); CALC OSMOLALITY 271 mosm/kg (275-300); CALCIUM 8.2 mg/dL (8.5-10.1); CARBON DIOXIDE 21.9 mmol/L (21.0-32.0); CHLORIDE - SERUM 104 mmol/L (98-107); CREATININE - SERUM 0.9 mg/dL (0.6-1.3); GLUCOSE 97 mg/dL (74-106); POTASSIUM - SERUM 3.9 mmol/L (3.5-5.1); PROTEIN - SERUM 6.7 g/dL (6.4-8.2); SODIUM 136 mmol/L (136-145); UREA NITROGEN 13 mg/dL (7-18); eGFR NON AFRICAN AMERICAN > 90 mL/min (90-120)
--- NOTE | 2019-01-28 06:26 | NUR ---
I have reviewed this patient and I concur with the Shift Assessment completed by the Licensed Practical Nurse today this shift.
--- NOTE | 2019-01-28 07:48 | NUR ---
PT IS RESTING IN BED WITH EYES OPEN. RESPIRATIONS ARE EVEN AND UNLABORED. PT REPORTS SLIGHT PAIN TO RIBS. PT WITH WEB SITE DEVELOPER AVAILABLE. PT EDUCATED ON SPLINTING FOR COUGHING AND DEEP BREATHING. PT GIVEN IS. PT ABLE TO REACH 3500 ON IS WITHOUT DIFFICULTY. PT ENCOURAGED TO AMBULATE THIS SHIFT AND PT VERBALIZES UNDERSTANDING. PT DENIES QUESTIONS AT THIS TIME. BED IS IN THE LOWEST POSITION. CALL LIGHT AND BEDSIDE TABLE ARE WITHIN REACH. SIDE RAILS X 2. PT DENIES FURTHER NEEDS AT THIS TIME. WILL CONT TO MONITOR.
[2019-01-28 08:35] VITALS: BP 112/64; BP 139/72
[2019-01-28 12:11] VITALS: BP 112/70
--- NOTE | 2019-01-28 13:56 | NUR ---
Nutrition Follow Up: Chart reviewed Diet: Regular PO Intake: 67% meal avg BM: 01/26/19 Meds and labs reviewed Rec continue current diet. RD following.
[2019-01-28 16:08] VITALS: BP 131/63
--- NOTE | 2019-01-28 20:20 | NUR ---
PT RESTING IN BED. ALERT AND ORIENTED. NO SIGNS OF DISTRESS. BREATHING EVEN AND UNLABORED. PT STATES NO PROBLEMS AT THIS TIME. IV SITE LT AC DRESSING CLEAN DRY AND INTACT. NO SIGNS OF INFECTION. BOWEL SOUNDS ACTIVE. LUNG SOUNDS CLEAR. TELE MONTIOR ON 74 NORMAL SINUS. NO LOWER LEG SWELLING PRESENT. WILL CONTINUE PLAN OF CARE. CALL LIGHT IN REACH. BED LOWERED AND LOCKED.
[2019-01-28 21:34] VITALS: BP 110/59
[2019-01-29 05:27] VITALS: BP 159/84
[2019-01-29 05:42] LABS: BASOPHILS 0.9 % (0-2); HEMATOCRIT 35.9 % (42.0-54.0); HEMOGLOBIN 12.3 g/dL (13.5-17.5); IMMATURE GRANULOCYTES 0.5 % (0-5); MCH 31.7 pg (26.0-34.0); MCHC 34.3 g/dL (31.0-37.0); MCV 92.5 fL (80.0-100.0); MEAN PLATELET VOLUME 9.1 fL (7.4-10.4); MONOCYTES 8.5 % (2-11); NEUTROPHILS 67.1 % (40-80); PLATELET COUNT 266 10x3/uL (130-400); RBC 3.88 10x6/uL (4.20-6.10)
[2019-01-29 05:44] LABS: WBC 6.4 10x3/uL (4.8-10.8)
--- NOTE | 2019-01-29 05:51 | NUR ---
I have reviewed this patient and I concur with the Shift Assessment completed by the Licensed Practical Nurse today this shift.
[2019-01-29 06:04] LABS: ALBUMIN 2.4 g/dL (3.4-5.0); ALKALINE PHOSPHATASE 73 U/L (46-116); ALT (SGPT) 31 U/L (10-68); BILIRUBIN - TOTAL 0.44 mg/dL (0.2-1.3); CALC OSMOLALITY 278 mosm/kg (275-300); CALCIUM 8.7 mg/dL (8.5-10.1); CARBON DIOXIDE 25.3 mmol/L (21.0-32.0); CHLORIDE - SERUM 107 mmol/L (98-107); GLUCOSE 102 mg/dL (74-106); POTASSIUM - SERUM 4.2 mmol/L (3.5-5.1); PROTEIN - SERUM 6.7 g/dL (6.4-8.2); SODIUM 139 mmol/L (136-145); UREA NITROGEN 14 mg/dL (7-18); eGFR NON AFRICAN AMERICAN 83 mL/min (90-120)
--- NOTE | 2019-01-29 07:30 | NUR ---
PT SITTING UP IN CHAIR. ALERT AND ORIENTED. UP AD DON. C/O PAIN, GAVE TORADOL FOR PAIN. NO S/S OF ACUTE DISTRESS NOTED. LUNG SOUNDS CLEAR, EXCEPT LLL DIMINISHED. IV TO LEFT AC, NS INFUSING @ KVO. SITE PATENT WITHOUT REDNESS OR SWELLING. PT ON TELEMETRY SR 71. PT DENIES ANYTHING FURTHER AT THIS TIME. CALL LIGHT IN REACH. WILL CONTINUE TO MONITOR.
[2019-01-29 08:17] VITALS: BP 129/76
[2019-01-29] MEDS ORDERED: ZITHROMAX250 MG PO (11:41)
[2019-01-29] MEDS ORDERED: TESSALON PERLE100 MG PO (11:42)
[2019-01-29] MEDS ORDERED: OMNICEF300 MG PO (11:42)
[2019-01-29] MEDS ORDERED: MUCINEX600 MG PO (11:42)
[2019-01-29] MEDS ORDERED: HYDROCODON-ACE1 EAC2 PO (11:43)
[2019-01-29 12:18] VITALS: BP 137/80
--- NOTE | 2019-01-29 13:48 | MORECARE ---
CASE MANAGEMENT DISCHARGE SUMMARY PATIENT: OLI PATTERSON UNIT: [id number] ADM DATE: 01/26/19 AGE: 53 : 65 SEX: M ROOM/BED: D.2239 AUTHOR: ANITHA,DOC PHYSICIAN: REFERRING PHYSICIAN: ALFIE KISER MD DATE OF SERVICE: 01/29/19 Discharge Plan Patient Name: OLI PATTERSON Facility: [facility]:[place] : 1965 Planned Disposition: Home Anticipated Discharge Date: 01/29/19 Discharge Date: Expected LOS: 3 Initial Reviewer: [email or web address] Initial Review Date: 01/29/2019 Generated: 01/29/19 2:48 pm Comments DCP- Discharge Planning Updated by [email or web address]: Brooklynn Broussard on 01/29/19 12:[address] Patient Name: OLI PATTERSON Admission Status: ER Accout number: [id number] Admission Date: 01-26-2019 : 1965 Admission Diagnosis:MULTIPLE FX OF RIBS, RIGHT SIDE, SUBS FOR FX W DELAY HE Attending: ALFIE KISER Current LOS: 3 Anticipated DC Date: 01-29-2019 Planned Disposition: Home Primary Insurance: [place] [employer] [facility] Discharge Planning Comments: CM met with patient to complete initial dc planning assessment. CM educated patient on the CM role and verbal consent given by patient to complete assessment. Patient lives at home with his and grand son. At discharge patient plans to return and feels this is a safe discharge. CM discussed availability of home health, rehab services, and medical equipment. Patient denied known discharge needs at this time. No needs identified. CM will continue to follow and will assist as needed with dc plans/needs. Forge Heater: Brooklynn Broussard DCPIA - Discharge Planning Initial Assessment Updated by [email or web address]: Brooklynn Broussard on 01/29/19 1:43 pm * Is the patient Alert and Oriented? Yes * How many steps to enter\exit or inside your home? 4/0 * PCP Dr. Nichols * Pharmacy [facility] * Preadmission Environment Home with Family * ADLs Independent * Equipment None * List name and contact numbers for known caregivers / representatives who currently or will assist patient after discharge: Yady - [facility] - [phone] * Verbal permission to speak to the caregivers and representatives has been obtained from the patient. Yes * Community resources currently utilized None * Additional services required to return to the preadmission environment? No * Can the patient safely return to the preadmission environment? Yes * Has this patient been hospitalized within the prior 30 days at any hospital? No Patient Name: OLI PATTERSON Page [phone] at 1348 All edits/amendments must be made on the electronic document DICTATION DATE: 01/29/19 1348 AUDITING CONTROL CLERK: MIGUELINA 01/29/19 1348 RPT#: [id number] DC DATE: STATUS: ADM IN [facility] [address] [place] [address] END OF REPORT
--- NOTE | 2019-01-29 14:31 | NUR ---
PT DISCHARGED HOME VIA WHEELCHAIR ACCOMPANIED BY HOSPITAL STAFF, WITH . DISCONTINUED IV, CATHETER TIP INTACT. WENT OVER DISCHARGE INSTRUCTIONS WITH PT. PT ACKNOWLEDGED INSTRUCTIONS. NO C/O PAIN. NO S/S OF ACUTE DISTRESS NOTED. PT DENIES ANYTHING FURTHER.
--- NOTE | 2019-02-05 14:16 | MORECARE ---
CASE MANAGEMENT DISCHARGE SUMMARY PATIENT: OLI PATTERSON UNIT: [id number] ADM DATE: 01/26/19 AGE: 53 : 65 SEX: M ROOM/BED: D.2239 AUTHOR: ANITHA,DOC PHYSICIAN: REFERRING PHYSICIAN: ALFIE KISER MD DATE OF SERVICE: 02/05/19 Discharge Plan Patient Name: OLI PATTERSON Facility: [facility]:[place] : 1965 Planned Disposition: Home Anticipated Discharge Date: 01/29/19 Discharge Date: 01/29/2019 Expected LOS: 3 Initial Reviewer: [email or web address] Initial Review Date: 01/29/2019 Generated: 02/05/19 3:16 pm Comments DCP- Discharge Planning Updated by [email or web address]: Brooklynn Broussard on 01/29/19 12:[address] Patient Name: OLI PATTERSON Admission Status: ER Accout number: [id number] Admission Date: 01-26-2019 : 1965 Admission Diagnosis:MULTIPLE FX OF RIBS, RIGHT SIDE, SUBS FOR FX W DELAY HE Attending: ALFIE KISER Current LOS: 3 Anticipated DC Date: 01-29-2019 Planned Disposition: Home [place] Insurance: [place] PRIVATE OPT[place] [facility] Discharge Planning Comments: CM met with patient to complete initial dc planning assessment. CM educated patient on the CM role and verbal consent given by patient to complete assessment. Patient lives at home with his and grand son. At discharge patient plans to return and feels this is a safe discharge. CM discussed availability of home health, rehab services, and medical equipment. Patient denied known discharge needs at this time. No needs identified. CM will continue to follow and will assist as needed with dc plans/needs. Rock Loader: Brooklynn Broussard DCPIA - Discharge Planning Initial Assessment Updated by [email or web address]: Brooklynn Broussard on 01/29/19 1:43 pm * Is the patient Alert and Oriented? Yes * How many steps to enter\exit or inside your home? 4/0 * PCP Dr. Nichols * Pharmacy [facility] * Preadmission Environment Home with Family * ADLs Independent * Equipment None * List name and contact numbers for known caregivers / representatives who currently or will assist patient after discharge: Yady figueroa - [phone] * Verbal permission to speak to the caregivers and representatives has been obtained from the patient. Yes * Community resources currently utilized None * Additional services required to return to the preadmission environment? No * Can the patient safely return to the preadmission environment? Yes * Has this patient been hospitalized within the prior 30 days at any hospital? No Last DP export: 01/29/19 12:48 pm Patient Name: OLI PATTERSON Page [id number] at 1416 All edits/amendments must be made on the electronic document DICTATION DATE: 02/05/191415 ELECTION SUPERVISOR: MIGUELINA 02/05/191415 RPT#: [id number] DC DATE:01/29/19 STATUS: DIS IN [facility] [address] [place] [address] END OF REPORT
== END 2019-01-29 14:33 | disposition home or self-care (01) | DRG 922 ==
LOC: D.ER 22:23 → D.MS 23:24 → OBSVTIME 23:24 → D.MS 23:24
PROVIDERS: Family Medicine; ADMIT Internal Medicine Nephrology; ATTEND Internal Medicine Nephrology
DX: T79.8XXA Other early complications of trauma, initial encounter (principal); J18.9 Pneumonia, unspecified organism; I50.32 Chronic diastolic (congestive) heart failure; S22.41XA Multiple fractures of ribs, right side, initial encounter for closed fracture; R06.00 Dyspnea, unspecified; I11.0 Hypertensive heart disease with heart failure; I50.9 Heart failure, unspecified; I25.10 Atherosclerotic heart disease of native coronary artery without angina pectoris; I48.91 Unspecified atrial fibrillation; J45.909 Unspecified asthma, uncomplicated; M54.5 Low back pain; F41.8 Other specified anxiety disorders

== ENCOUNTER → 2019-04-02 15:01 | Outpatient (CLI) | payer SELFPAY ==
[~2019-04-02 15:01] MED LIST changes: +ALBUTEROL SULF8.5 GM; +HYDROCODON-ACE1 EAC2 PO; +MUCINEX600 MG PO; +OMNICEF300 MG PO; +SYNTHROID50 MCG PO; +TESSALON PERLE100 MG PO; +ZITHROMAX250 MG PO
== END | disposition home or self-care (01) ==
LOC: D.RT 14:00
PROVIDERS: ATTEND Internal Medicine Pulmonary Disease
DX: J44.9 Chronic obstructive pulmonary disease, unspecified (principal)

== ENCOUNTER → 2019-05-28 13:59 | Outpatient (CLI) | payer MEDICAID | END | disposition home or self-care (01) | LOC: D.HCCARDIO 13:59 | PROVIDERS: ATTEND Internal Medicine Cardiovascular Disease | DX: I25.10 Atherosclerotic heart disease of native coronary artery without angina pectoris (principal) ==

== ENCOUNTER 2019-07-28 14:03 | Inpatient (IN) | payer MEDICAID ==
[~2019-07-28] VITALS: Ht 177.8 cm; Wt 83.9 kg
[~2019-07-28 14:03] MED LIST changes: -ALBUTEROL SULF8.5 GM; +ALBUTEROL SULF8.5 GM INH
--- NOTE | 2019-07-28 14:49 | NUR ---
PT OUT OF ED AT THIS TIME FOR ORDERED XRAYS, TRANSPORTED VIA STRETCHER.
--- NOTE | 2019-07-28 14:59 | NUR ---
ULTRASOUND AT BEDSIDE AT THIS TIME. PT AWARE THAT URINE SAMPLE NEEDED FOR ORDERED LABS, PT STATES HE WILL PROVIDE SAMPLE GER.
[2019-07-28 15:28] LABS: CALC OSMOLALITY 274 mosm/kg (275-300); CALCIUM 8.6 mg/dL (8.5-10.1); CARBON DIOXIDE 29.3 mmol/L (21.0-32.0); CHLORIDE - SERUM 102 mmol/L (98-107); GLUCOSE 102 mg/dL (74-106); POTASSIUM - SERUM 3.5 mmol/L (3.5-5.1); SODIUM 137 mmol/L (136-145); UREA NITROGEN 14 mg/dL (7-18); eGFR NON AFRICAN AMERICAN 83 mL/min (90-120)
[2019-07-28 15:34] LABS: ALBUMIN 3.1 g/dL (3.4-5.0); ALKALINE PHOSPHATASE 110 U/L (46-116); ALT (SGPT) 27 U/L (10-68); BILIRUBIN - TOTAL 1.04 mg/dL (0.2-1.3); PROTEIN - SERUM 7.2 g/dL (6.4-8.2)
[2019-07-28 15:42] LABS: BASOPHILS 0.2 % (0-2); EOSINOPHILS 0.2 % (0-7); HEMATOCRIT 41.3 % (42.0-54.0); HEMOGLOBIN 13.8 g/dL (13.5-17.5); IMMATURE GRANULOCYTES 0.3 % (0-5); MCH 31.8 pg (26.0-34.0); MCHC 33.4 g/dL (31.0-37.0); MCV 95.2 fL (80.0-100.0); MEAN PLATELET VOLUME 9.7 fL (7.4-10.4); MONOCYTES 8.8 % (2-11); NEUTROPHILS 78.5 % (40-80); PLATELET COUNT 271 10x3/uL (130-400); RBC 4.34 10x6/uL (4.20-6.10); WBC 19.5 10x3/uL (4.8-10.8)
[2019-07-28 16:32] LABS: APPEARANCE CLEAR (CLEAR); BILIRUBIN NEGATIVE (NEGATIVE); COLOR YELLOW (YELLOW); GLUCOSE NEGATIVE (NEGATIVE); KETONE NEGATIVE (NEGATIVE); NITRITE NEGATIVE (NEGATIVE); PROTEIN NEGATIVE (NEGATIVE); SPECIFIC GRAVITY 1.015 (1.005-1.020); UROBILINOGEN NORMAL (NORMAL)
[2019-07-28 18:29] VITALS: BP 114/74
--- NOTE | 2019-07-28 18:30 | NUR ---
ROOM 2204 ASSIGNED TO PT AT 1825, ROOM MARKED DIRTY AND STAT CLEAN ORDERED.
--- NOTE | 2019-07-28 18:59 | NUR ---
PER DR. ASCENCIO, CONSULT DR. CANCINO WHO IS CURRENTLY AT THE BEDSIDE TO SPEAK WITH PT.
[2019-07-28 19:00] VITALS: BP 122/64
--- NOTE | 2019-07-28 19:00 | NUR ---
HAND OFF REPORT GIVEN TO PALOMA CASILLAS.
[2019-07-28 20:17] VITALS: BP 127/79
--- NOTE | 2019-07-28 20:34 | NUR ---
FLAGYL GIVEN AT 1936 WAS FINISHED AND DC'D AT 2032
[2019-07-29] VITALS (11 sets, daily range): BP systolic 100–128; BP diastolic 50–70; Ht 177.8 cm; Wt 83.9 kg
[2019-07-29 06:16] LABS: BASOPHILS 0.3 % (0-2); EOSINOPHILS 0.5 % (0-7); HEMOGLOBIN 14.3 g/dL (13.5-17.5); IMMATURE GRANULOCYTES 0.2 % (0-5); LYMPHOCYTES 10.8 % (15-50); MCHC 33.3 g/dL (31.0-37.0); MCV 96.2 fL (80.0-100.0); MEAN PLATELET VOLUME 10.1 fL (7.4-10.4); MONOCYTES 8.2 % (2-11); PLATELET COUNT 281 10x3/uL (130-400); RBC 4.47 10x6/uL (4.20-6.10); RDW 13.4 % (11.5-14.5); WBC 17.6 10x3/uL (4.8-10.8)
[2019-07-29 06:35] LABS: ALBUMIN 3.2 g/dL (3.4-5.0); ALKALINE PHOSPHATASE 106 U/L (46-116); ALT (SGPT) 21 U/L (10-68); BILIRUBIN - TOTAL 1.07 mg/dL (0.2-1.3); CALC OSMOLALITY 274 mosm/kg (275-300); CALCIUM 8.7 mg/dL (8.5-10.1); CHLORIDE - SERUM 104 mmol/L (98-107); CREATININE - SERUM 0.8 mg/dL (0.6-1.3); GLUCOSE 102 mg/dL (74-106); POTASSIUM - SERUM 3.8 mmol/L (3.5-5.1); PROTEIN - SERUM 7.4 g/dL (6.4-8.2); SODIUM 137 mmol/L (136-145); UREA NITROGEN 14 mg/dL (7-18); eGFR NON AFRICAN AMERICAN > 90 mL/min (90-120)
[2019-07-29 06:37] LABS: CARBON DIOXIDE 21.9 mmol/L (21.0-32.0)
[2019-07-29 07:30] LABS: C-REACTIVE PROTEIN 24.2 mg/dL (0.0-0.9)
--- NOTE | 2019-07-29 07:37 | NUR ---
AWAKE AND ALERT. ORIENTED X3. C/O HEADACHE AND TESTICULAR PAIN LEVEL 8. REQUESTED AND GIVEN 4MG MORPHINE SLOW IVP FOR SAME. WILL MONITOR. LUNGS ARE CLEAR BILATERALLY, NO COUGH NOTED. SKIN IS INTACT WITHOUT REDNESS EXCEPT SCROTAL AREA IS SWOLLEN. IV TO LEFT FOREARM IS PATENT WTIHOUT REDNESS AT INSERTION SITE. DENIES NEEDS. NPO AT THIS TIME.
--- NOTE | 2019-07-29 10:27 | NUR ---
OFF UNIT VIA BED TO SURGERY.
--- NOTE | 2019-07-29 12:15 | NUR ---
RETURNED FROM SURGERY. A/O X3. NO C/O AT THIS TIME.
--- NOTE | 2019-07-29 13:00 | NUR ---
SITTING UP IN BED EATING LUNCH. FAMILY AT BEDSIDE. ICE APPLIED TO SCROTUM. WILL MONITOR.
--- NOTE | 2019-07-29 16:15 | NUR ---
REQUESTED AND GIVNE ONE HYDROCODONE PO FOR C/O SCROTAL PAIN LEVEL 8. WILL MONITOR.
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
[2019-07-30] VITALS: BP 118/72
[2019-07-30 04:00] VITALS: BP 120/65
[2019-07-30 06:58] LABS: BASOPHILS 0.3 % (0-2); EOSINOPHILS 1.2 % (0-7); HEMATOCRIT 39.5 % (42.0-54.0); HEMOGLOBIN 12.8 g/dL (13.5-17.5); IMMATURE GRANULOCYTES 0.1 % (0-5); LYMPHOCYTES 16.1 % (15-50); MCH 31.6 pg (26.0-34.0); MCHC 32.4 g/dL (31.0-37.0); MCV 97.5 fL (80.0-100.0); MEAN PLATELET VOLUME 10.1 fL (7.4-10.4); NEUTROPHILS 74.3 % (40-80); PLATELET COUNT 248 10x3/uL (130-400); RBC 4.05 10x6/uL (4.20-6.10); RDW 13.4 % (11.5-14.5)
[2019-07-30 07:04] LABS: WBC 11.1 10x3/uL (4.8-10.8)
[2019-07-30 07:08] LABS: CALC OSMOLALITY 274 mosm/kg (275-300); CARBON DIOXIDE 26.4 mmol/L (21.0-32.0); CHLORIDE - SERUM 106 mmol/L (98-107); CREATININE - SERUM 0.9 mg/dL (0.6-1.3); GLUCOSE 84 mg/dL (74-106); POTASSIUM - SERUM 4.2 mmol/L (3.5-5.1); SODIUM 138 mmol/L (136-145); UREA NITROGEN 12 mg/dL (7-18); eGFR NON AFRICAN AMERICAN > 90 mL/min (90-120)
--- NOTE | 2019-07-30 07:41 | NUR ---
AWAKE AND ALERT. ORIENTED X3. NO C/O AT THIS TIME. LUNGS ARE CLEAR BILATERALLY, NO COUGH NOTED. SKIN IS INTACT WITHOUT REDNESS EXCEPT WOUND TO SCROTUM WHICH HAS A DRY INTACT DRESSING IN PLACE. IV TO LEFT FOREARM IS PATENT WITHOUT REDNESS AT INSERTION SITE. DENIES NEEDS.
--- NOTE | 2019-07-30 08:10 | NUR ---
UP TO BR WITH SBA. C/O INCREASED PAIN WITH ACTIVITY. REQUESTED AND GIVEN ONE HYDROCODONE PO FOR SAME. WILL MONITOR.
[2019-07-30 08:12] VITALS: BP 120/71
--- NOTE | 2019-07-30 09:37 | MORECARE ---
CASE MANAGEMENT DISCHARGE SUMMARY PATIENT: OLI PATTERSON UNIT: [id number] ADM DATE: 07/28/19 AGE: 53 : 65 SEX: M ROOM/BED: D.2204 AUTHOR: ANITHA,DOC PHYSICIAN: REFERRING PHYSICIAN: RUBY HASKINS MD DATE OF SERVICE: 07/30/19 Discharge Plan Patient Name: OLI PATTERSON Facility: [facility]:[place] : 1965 Planned Disposition: Home with Home Health Anticipated Discharge Date: Discharge Date: Expected LOS: Initial Reviewer: [email or web address] Initial Review Date: 07/28/2019 Generated: 07/30/19 10:37 am Comments DCP- Discharge Planning Updated by [email or web address]: Guillermina Adamson on 07/30/19 8:[address] Patient Name: OLI PATTERSON Admission Status: ER Accout number: [id number] Admission Date: 07-28-2019 : 1965 Admission Diagnosis: Attending: JOZEF, Current LOS: 2 Anticipated DC Date: Planned Disposition: Home with Home Health Primary Insurance: [place] [employer] OPT[place] [facility] Discharge Planning Comments: CM met with patient to complete initial dc planning assessment. CM educated patient on the CM role and verbal consent given by patient to complete assessment. Patient lives at home with his and grandson where he independent with his care. At discharge patient plans to return home and feels this is a safe discharge. CM discussed availability of home health, rehab services, and medical equipment. He will need home health for wound care, REZA with [facility]. Will send clinical to [facility]. Patient denied known discharge needs at this time. CM will continue to follow and will assist as needed with dc plans/needs. Carton Liner: Guillermina Adamson DCPIA - Discharge Planning Initial Assessment Updated by [email or web address]: Guillermina Adamson on 07/30/19 9:33 am * Is the patient Alert and Oriented? Yes * How many steps to enter\exit or inside your home? RAMP * PCP [facility] * Pharm[facility] * Preadmission Environment Home with Family * ADLs Independent * Equipment None * List name and contact numbers for known caregivers / representatives who currently or will assist patient after discharge: PHILLIP (MOTHER) [phone] * Verbal permission to speak to the caregivers and representatives has been obtained from the patient. N/A * Community resources currently utilized None * Additional services required to return to the preadmission environment? Yes * Can the patient safely return to the preadmission environment? Yes * Has this patient been hospitalized within the prior 30 days at any hospital? No Patient Name: OLI PATTERSON Page [phone] at 0937 All edits/amendments must be made on the electronic document DICTATION DATE: 07/30/19936 TRIM SAWYER: MIGUELINA 07/30/19936 RPT#: [id number] DC DATE: STATUS: ADM IN [facility] [address] [place] [address] END OF REPORT
--- NOTE | 2019-07-30 10:26 | NUR ---
SPOKE WITH [facility] AND GOT CORRECTED MED FOR PATIENT. HE TAKES METHIMAZOLE 30MG BID.
--- NOTE | 2019-07-30 12:05 | NUR ---
DRESSING CHANGED TO SCROTUM AT THIS TIME. WOUND IS CLEAN AND DRY WITHOUT ODOR. TOLERATED WELL. GIVEN 2MG MORPHINE SLOW IVP FOR PAIN MANAGEMENT AFTER DRESSING CHANGE.
[2019-07-30 13:26] VITALS: BP 118/73
--- NOTE | 2019-07-30 15:13 | MORECARE ---
CASE MANAGEMENT DISCHARGE SUMMARY PATIENT: OLI PATTERSON UNIT: [id number] ADM DATE: 07/28/19 AGE: 53 : 65 SEX: M ROOM/BED: D.2204 AUTHOR: ANITHA,DOC PHYSICIAN: REFERRING PHYSICIAN: RUBY HASKINS MD DATE OF SERVICE: 07/30/19 Discharge Plan Patient Name: OLI PATTERSON Facility: [facility]:[place] : 1965 Planned Disposition: Home with Home Health Anticipated Discharge Date: Discharge Date: Expected LOS: Initial Reviewer: [email or web address] Initial Review Date: 07/28/2019 Generated: 07/30/19 4:13 pm Comments DCP- Discharge Planning Updated by [email or web address]: Guillermina Adamson on 07/30/19 2:[address] [facility] will accept the patient per Ray DCP- Discharge Planning Updated by [email or web address]: Guillermina Adamson on 07/30/19 8:[address] Patient Name: OLI PATTERSON Admission Status: ER Accout number: [id number] Admission Date: 07-28-2019 : 1965 Admission Diagnosis: Attending: JOZEF, Current LOS: 2 Anticipated DC Date: Planned Disposition: Home with Home Health Primary Insurance: [facility] PRIVATE OPTIONS [facility] Discharge Planning Comments: CM met with patient to complete initial dc planning assessment. CM educated patient on the CM role and verbal consent given by patient to complete assessment. Patient lives at home with his and grandson where he independent with his care. At discharge patient plans to return home and feels this is a safe discharge. CM discussed availability of home health, rehab services, and medical equipment. He will need home health for wound care, REZA with [facility]. Will send clinical to [facility]. Patient denied known discharge needs at this time. CM will continue to follow and will assist as needed with dc plans/needs. Coin Machine Servicer Repairer: Guillermina Adamson DCPIA - Discharge Planning Initial Assessment Updated by [email or web address]: Guillermina Adamson on 07/30/19 9:33 am * Is the patient Alert and Oriented? Yes * How many steps to enter\exit or inside your home? RAMP * PCP [facility] * Pharm[facility] * Preadmission Environment Home with Family * ADLs Independent * Equipment None * List name and contact numbers for known caregivers / representatives who currently or will assist patient after discharge: PHILLIP (MOTHER) [phone] * Verbal permission to speak to the caregivers and representatives has been obtained from the patient. N/A * Community resources currently utilized None * Additional services required to return to the preadmission environment? Yes * Can the patient safely return to the preadmission environment? Yes * Has this patient been hospitalized within the prior 30 days at any hospital? No Coverage Notice Reviewer: [id number] Hilda Adamson Notice Issued Date-Time: 07/30/2019 9:00 Notice Type: Patient Choice Letter Notice Delivered To: Patient Relationship to Patient: Land Mobile Radio Technician Name: Delivery Method: HAND - Hand Delivered Anitha Days: Prior Verbal Notification: Recipient Understood Notice: Yes Recipient Signature: Yes Med Rec Note Co-signed by Attending: Coverage Notice Comment: [facility] Last DP export: 07/30/19 8:37 a Patient Name: OLI PATTERSON Page 41006 at 1513 All edits/amendments must be made on the electronic document DICTATION DATE: 07/30/191511 POCKET BUILDER: MIGUELINA 07/30/191511 RPT#: [id number] DC DATE: STATUS: ADM IN [facility] [address] [place] [address] END OF REPORT
--- NOTE | 2019-07-30 15:37 | MORECARE ---
CASE MANAGEMENT DISCHARGE SUMMARY PATIENT: OLI PATTERSON UNIT: [id number] ADM DATE: 07/28/19 AGE: 53 : 65 SEX: M ROOM/BED: D.2204 AUTHOR: ANITHA,DOC PHYSICIAN: REFERRING PHYSICIAN: RUBY HASKINS MD DATE OF SERVICE: 07/30/19 Discharge Plan Patient Name: OLI PATTERSON Facility: [facility]:[place] : 1965 Planned Disposition: Home with Home Health Anticipated Discharge Date: Discharge Date: Expected LOS: Initial Reviewer: [email or web address] Initial Review Date: 07/28/2019 Generated: 07/30/19 4:37 pm Comments DCP- Discharge Planning Updated by [email or web address]: Guillermina Adamson on 07/30/19 2:[address] faxed letter to [facility] [phone] as requested per . She gave me this fax number DCP- Discharge Planning Updated by [email or web address]: Guillermina Adamson on 07/30/19 2:[address] [facility] will accept the patient per Ray DCP- Discharge Planning Updated by [email or web address]: Guillermina Adamson on 07/30/19 8:[address] Patient Name: OLI PATTERSON Admission Status: ER Accout number: [id number] Admission Date: 07-28-2019 : 1965 Admission Diagnosis: Attending: JOZEF, Current LOS: 2 Anticipated DC Date: Planned Disposition: Home with Home Health Primary Insurance: [facility] PRIVATE OPTIONS [facility] Discharge Planning Comments: CM met with patient to complete initial dc planning assessment. CM educated patient on the CM role and verbal consent given by patient to complete assessment. Patient lives at home with his and grandson where he independent with his care. At discharge patient plans to return home and feels this is a safe discharge. CM discussed availability of home health, rehab services, and medical equipment. He will need home health for wound care, EDITH with [facility]. Will send clinical to [facility]. Patient denied known discharge needs at this time. CM will continue to follow and will assist as needed with dc plans/needs. Global Expansion Sales Director: Guillermina Adamson DCPIA - Discharge Planning Initial Assessment Updated by [email or web address]: Guillermina Adamson on 07/30/19 9:33 am * Is the patient Alert and Oriented? Yes * How many steps to enter\exit or inside your home? RAMP * PCP [facility] * [facility] * Preadmission Environment Home with Family * ADLs Independent * Equipment None * List name and contact numbers for known caregivers / representatives who currently or will assist patient after discharge: PHILLIP (MOTHER) [phone] * Verbal permission to speak to the caregivers and representatives has been obtained from the patient. N/A * Community resources currently utilized None * Additional services required to return to the preadmission environment? Yes * Can the patient safely return to the preadmission environment? Yes * Has this patient been hospitalized within the prior 30 days at any hospital? No Coverage Notice Reviewer: [email or web address] - Guillermina Adamson Notice Issued Date-Time: 07/30/2019 9:00 Notice Type: Patient Choice Letter Notice Delivered To: Patient Relationship to Patient: Metal Sander Name: Delivery Method: HAND - Hand Delivered Anitha Days: Prior Verbal Notification: Recipient Understood Notice: Yes Recipient Signature: Yes Med Rec Note Co-signed by Attending: Coverage Notice Comment: edith for Outcome Referrals [facility] Last DP export: 07/30/19 2:13 p Patient Name: OLI PATTERSON Page 18772 at 1537 All edits/amendments must be made on the electronic document DICTATION DATE: 07/30/191536 ACID PAINTER: MIGUELINA 07/30/191536 RPT#: [id number] DC DATE: STATUS: ADM IN [facility] [address] [place] [address] END OF REPORT
[2019-07-30 16:13] VITALS: BP 129/67
--- NOTE | 2019-07-30 19:22 | NUR ---
ATE ALL OF SUPPER. REPORTED EXCELLENT PAIN RELIEF WITH USE OF PERCOCET. DENEIS NEEDS. NO CHANGES NOTED. FAMILY AT BEDSIDE.
[2019-07-30 19:53] VITALS: BP 121/65
[2019-07-31] VITALS: BP 118/57
[2019-07-31 04:00] VITALS: BP 105/71
[2019-07-31 06:39] LABS: BASOPHILS 0.3 % (0-2); EOSINOPHILS 2.3 % (0-7); HEMATOCRIT 40.7 % (42.0-54.0); HEMOGLOBIN 13.3 g/dL (13.5-17.5); IMMATURE GRANULOCYTES 0.2 % (0-5); MCH 31.7 pg (26.0-34.0); MCHC 32.7 g/dL (31.0-37.0); MCV 97.1 fL (80.0-100.0); MEAN PLATELET VOLUME 9.8 fL (7.4-10.4); NEUTROPHILS 75.2 % (40-80); PLATELET COUNT 280 10x3/uL (130-400); RBC 4.19 10x6/uL (4.20-6.10); RDW 13.3 % (11.5-14.5); WBC 9.2 10x3/uL (4.8-10.8)
[2019-07-31 07:15] LABS: CALC OSMOLALITY 276 mosm/kg (275-300); CALCIUM 8.2 mg/dL (8.5-10.1); CARBON DIOXIDE 22.8 mmol/L (21.0-32.0); CHLORIDE - SERUM 107 mmol/L (98-107); CREATININE - SERUM 0.8 mg/dL (0.6-1.3); GLUCOSE 101 mg/dL (74-106); POTASSIUM - SERUM 4.3 mmol/L (3.5-5.1); SODIUM 139 mmol/L (136-145); UREA NITROGEN 9 mg/dL (7-18); eGFR NON AFRICAN AMERICAN > 90 mL/min (90-120)
[2019-07-31 08:12] VITALS: BP 112/77
--- NOTE | 2019-07-31 08:24 | NUR ---
PATIENT AWAKE IN BED. NO NEEDS AT THIS TIME. STATES PACKING FELL OUT SO THE DRESSING WAS REDONE AROUND 4 OR 5 THIS MORNING BY HIS ESTIMATE. CL IN REACH. WCTM
--- NOTE | 2019-07-31 10:34 | NUR ---
PATIENT REQUESTED AND RECEIVED THE AC ON. SET IT ON HIGH AT 70. CL IN REACH. WCTM
--- NOTE | 2019-07-31 13:01 | NUR ---
PROVIDED AN ICE PACK. CL IN REACH. REQUESTS A PERCOCET WHEN IT IS TIME. TM
[2019-07-31 13:33] VITALS: BP 95/69
[2019-07-31 16:23] VITALS: BP 114/69
--- NOTE | 2019-07-31 17:34 | NUR ---
IV TUBING CHANGED. ICE PACK PROVIDED. CL IN REACH. NO FURTHER NEEDS AT THIS TIME.
[2019-07-31 19:49] VITALS: BP 122/66
[2019-08-01] VITALS: BP 110/66
--- NOTE | 2019-08-01 00:53 | NUR ---
PATIENT RESTING QUIETLY, IV FLUIDS INFUSING WITHOUT DIFFICULTY, CALL LIGHT WITHIN REACH
[2019-08-01 04:00] VITALS: BP 111/69
[2019-08-01 06:29] LABS: BASOPHILS 0.8 % (0-2); EOSINOPHILS 3.8 % (0-7); HEMATOCRIT 43.9 % (42.0-54.0); IMMATURE GRANULOCYTES 0.3 % (0-5); LYMPHOCYTES 19.8 % (15-50); MCH 31.6 pg (26.0-34.0); MCHC 31.9 g/dL (31.0-37.0); MEAN PLATELET VOLUME 9.9 fL (7.4-10.4); MONOCYTES 7.3 % (2-11); PLATELET COUNT 291 10x3/uL (130-400); RBC 4.43 10x6/uL (4.20-6.10); RDW 13.6 % (11.5-14.5)
[2019-08-01 06:30] LABS: MCV 99.1 fL (80.0-100.0)
[2019-08-01 06:46] LABS: CALC OSMOLALITY 276 mosm/kg (275-300); CALCIUM 8.6 mg/dL (8.5-10.1); CARBON DIOXIDE 19.5 mmol/L (21.0-32.0); CHLORIDE - SERUM 106 mmol/L (98-107); CREATININE - SERUM 0.8 mg/dL (0.6-1.3); GLUCOSE 133 mg/dL (74-106); POTASSIUM - SERUM 4.8 mmol/L (3.5-5.1); SODIUM 138 mmol/L (136-145); UREA NITROGEN 11 mg/dL (7-18); eGFR NON AFRICAN AMERICAN > 90 mL/min (90-120)
[2019-08-01 08:19] VITALS: BP 111/74
--- NOTE | 2019-08-01 10:17 | NUR ---
PATIENT PLACED IN TEMP CONTACT ISOLATION. NO NEEDS AT THIS TIME. CL IN REACH. WCTM
[2019-08-01 12:40] VITALS: BP 109/66
[2019-08-01 16:22] VITALS: BP 112/68
--- NOTE | 2019-08-01 16:47 | NUR ---
WASHED OUT INCISION WITH HYDROGEN PEROXIDE ORDERED. PATIENT TOLERATED WELL. CL IN REACH. WCTM
--- NOTE | 2019-08-01 19:33 | NUR ---
PATIENT RESTING IN BED WITH NO S/S OF DISTRESS. BROUGHT PATIENT WATER PER HIS REQUEST. PATIENT DENIES OTHER NEEDS AT THIS TIME. BED IN LOWEST POSITION AND CALL LIGHT WITHIN REACH. ENCOURAGED THE PATIENT TO CALL IF HE HAS NEEDS. WILL CONTINUE TO MONITOR.
[2019-08-01 20:47] VITALS: BP 119/76
[2019-08-02 00:58] VITALS: BP 102/78
[2019-08-02 05:55] VITALS: BP 106/78
[2019-08-02 07:42] LABS: BASOPHILS 0.4 % (0-2); EOSINOPHILS 2.2 % (0-7); HEMATOCRIT 43.5 % (42.0-54.0); HEMOGLOBIN 14.3 g/dL (13.5-17.5); IMMATURE GRANULOCYTES 0.4 % (0-5); LYMPHOCYTES 16.5 % (15-50); MCH 31.6 pg (26.0-34.0); MCHC 32.9 g/dL (31.0-37.0); MEAN PLATELET VOLUME 9.6 fL (7.4-10.4); MONOCYTES 7.6 % (2-11); NEUTROPHILS 72.9 % (40-80); RBC 4.53 10x6/uL (4.20-6.10); RDW 13.4 % (11.5-14.5); WBC 9.4 10x3/uL (4.8-10.8)
[2019-08-02 07:45] LABS: CALC OSMOLALITY 277 mosm/kg (275-300); CARBON DIOXIDE 21.2 mmol/L (21.0-32.0); CHLORIDE - SERUM 104 mmol/L (98-107); GLUCOSE 135 mg/dL (74-106); POTASSIUM - SERUM 3.6 mmol/L (3.5-5.1); SODIUM 138 mmol/L (136-145); UREA NITROGEN 13 mg/dL (7-18); eGFR NON AFRICAN AMERICAN 83 mL/min (90-120)
--- NOTE | 2019-08-02 08:02 | NUR ---
PATIENT RECIEVED FROM PREVIOUS SHIFT RESTING WITH NO NEEDS VOICED, CONTACT [facility] FOR MRSA L SCROTAL ABCESS. CL IN REACH
[2019-08-02 08:11] LABS: PLATELET COUNT 413 10x3/uL (130-400)
[2019-08-02 08:27] VITALS: BP 109/67
[2019-08-02] MEDS ORDERED: MONODOX100 MG PO (09:06)
[2019-08-02 11:58] VITALS: BP 113/82
--- NOTE | 2019-08-02 12:52 | MORECARE ---
CASE MANAGEMENT DISCHARGE SUMMARY PATIENT: OLI PATTERSON UNIT: [id number] ADM DATE: 07/28/19 AGE: 53 : 65 SEX: M ROOM/BED: D.2204 AUTHOR: ANITHA,DOC PHYSICIAN: REFERRING PHYSICIAN: RUBY HASKINS MD DATE OF SERVICE: 08/02/19 Discharge Plan Patient Name: OLI PATTERSON Facility: [facility]:[place] : 1965 Planned Disposition: Home with Home Health Anticipated Discharge Date: Discharge Date: Expected LOS: Initial Reviewer: [email or web address] Initial Review Date: 07/28/2019 Generated: 08/02/19 1:52 pm Comments DCP- Discharge Planning Updated by [email or web address]: Guillermina Adamson on 08/02/19 11:[address] PATIENT WILL BE DISCHARGING HOME TODAY, THE PATIENT DOES NOT WANT HOME HEALTH NOW BECAUSE HE DOES NOT NEED PACKING AND HIS CAN TAKE CARE OF WHAT HE NEEDS. CM TO FOLLOW AND ASSIST NEEDED DCP- Discharge Planning Updated by [email or web address]: Guillermina Adamson on 07/30/19 3:[address] faxed letter to [facility] [phone] as requested per . She gave me this fax number DCP- Discharge Planning Updated by [id number]: Guillermina Adamson on 07/30/19 3:[address] [facility] will accept the patient per Ray DCP- Discharge Planning Updated by [email or web address]: Guillermina Adamson on 07/30/19 9:[address] Patient Name: OLI PATTERSON Admission Status: ER Accout number: [id number] Admission Date: 07-28-2019 : 1965 Admission Diagnosis: Attending: JOZEF, Current LOS: 2 Anticipated DC Date: Planned Disposition: Home with Home Health Primary Insurance: [place] [employer]IVATE OPTIONS [facility] Discharge Planning Comments: CM met with patient to complete initial dc planning assessment. CM educated patient on the CM role and verbal consent given by patient to complete assessment. Patient lives at home with his and grandson where he independent with his care. At discharge patient plans to return home and feels this is a safe discharge. CM discussed availability of home health, rehab services, and medical equipment. He will need home health for wound care, EDITH with [facility]. Will send clinical to [facility]. Patient denied known discharge needs at this time. CM will continue to follow and will assist as needed with dc plans/needs. Electrical Fitter: Guillermina Adamson DCPIA - Discharge Planning Initial Assessment Updated by [email or web address]: Guillermina Adamson on 07/30/19 9:33 am * Is the patient Alert and Oriented? Yes * How many steps to enter\exit or inside your home? RAMP * PCP [facility] * [facility] * Preadmission Environment Home with Family * ADLs Independent * Equipment None * List name and contact numbers for known caregivers / representatives who currently or will assist patient after discharge: PHILLIP (MOTHER) [phone] * Verbal permission to speak to the caregivers and representatives has been obtained from the patient. N/A * Community resources currently utilized None * Additional services required to return to the preadmission environment? Yes * Can the patient safely return to the preadmission environment? Yes * Has this patient been hospitalized within the prior 30 days at any hospital? No Coverage Notice Reviewer: [id number] - Guillermina Adamson Notice Issued Date-Time: 07/30/2019 9:00 Notice Type: Patient Choice Letter Notice Delivered To: Patient Relationship to Patient: Manager Social Responsibility Name: Delivery Method: HAND - Hand Delivered Anitha Days: Prior Verbal Notification: Recipient Understood Notice: Yes Recipient Signature: Yes Med Rec Note Co-signed by Attending: Coverage Notice Comment: edith for [facility] Last DP export: 07/30/19 3:37 p Patient Name: OLI PATTERSON Page 55218 at 1252 All edits/amendments must be made on the electronic document DICTATION DATE: 08/02/19 1252 BATCH ROLLER OPERATOR: MIGUELINA 08/02/19 1252 RPT#: [id number] DC DATE: STATUS: ADM IN [facility] [address] [place] [address] END OF REPORT
[2019-08-02] MEDS ORDERED: PERCOCET 10-321 EAC1 PO (12:55)
--- NOTE | 2019-08-02 15:26 | NUR ---
IV REMOVED WITH NO REDNESS OR EDEMA AT SITE, TEACHING PROVIDED OF HYDROGEN PEROXIDE FLUSH AND S/S OF INFECTION TO REPORT TO PHYSICIAN. DISCHARGE INSTRUCTIONS GIVEN TO PATIENT WITH UNDERSTANDING VIOCED. PATIENT REQUEST TO AMBULATE TO PRIVATE CAR, WITH MOM TRANSFERING HOME.
--- NOTE | 2019-08-03 15:34 | MORECARE ---
CASE MANAGEMENT DISCHARGE SUMMARY PATIENT: OLI PATTERSON UNIT: [id number] ADM DATE: 07/28/19 AGE: 53 : 65 SEX: M ROOM/BED: D.2204 AUTHOR: ANITHA,DOC PHYSICIAN: REFERRING PHYSICIAN: RUBY HASKINS MD DATE OF SERVICE: 08/03/19 Discharge Plan Patient Name: OLI PATTERSON Facility: [facility]:[place] : 1965 Planned Disposition: Home with Home Health Anticipated Discharge Date: Discharge Date: 08/02/2019 Expected LOS: Initial Reviewer: [email or web address] Initial Review Date: 07/28/2019 Generated: 08/03/19 4:33 pm Comments DCP- Discharge Planning Updated by [email or web address]: Guillermina Adamson on 08/02/19 11:[address] PATIENT WILL BE DISCHARGING HOME TODAY, THE PATIENT DOES NOT WANT HOME HEALTH NOW BECAUSE HE DOES NOT NEED PACKING AND HIS CAN TAKE CARE OF WHAT HE NEEDS. CM TO FOLLOW AND ASSIST NEEDED DCP- Discharge Planning Updated by [email or web address]: Guillermina Adamson on 07/30/19 3:[address] faxed letter to [facility] [phone] as requested per . She gave me this fax number DCP- Discharge Planning Updated by [email or web address]: Guillermina Adamson on 07/30/19 3:[address] [facility] will accept the patient per Ray DCP- Discharge Planning Updated by [email or web address]: Guillermina Adamson on 07/30/19 9:[address] Patient Name: OLI PATTERSON Admission Status: ER Accout number: [id number] Admission Date: 07-28-2019 : 1965 Admission Diagnosis: Attending: JOZEF, Current LOS: 2 Anticipated DC Date: Planned Disposition: Home with Home Health [place] Insurance: [place] [employer] [facility] Discharge Planning Comments: CM met with patient to complete initial dc planning assessment. CM educated patient on the CM role and verbal consent given by patient to complete assessment. Patient lives at home with his and grandson where he independent with his care. At discharge patient plans to return home and feels this is a safe discharge. CM discussed availability of home health, rehab services, and medical equipment. He will need home health for wound care, EDITH with [facility]. Will send clinical to Narrative. Patient denied known discharge needs at this time. CM will continue to follow and will assist as needed with dc plans/needs. Switchboard Manager: Guillermina Adamson DCPIA - Discharge Planning Initial Assessment Updated by [email or web address]: Guillermina Adamson on 07/30/19 9:33 am * Is the patient Alert and Oriented? Yes * How many steps to enter\exit or inside your home? RAMP * PCP [facility] * Pharmacy [facility] * Preadmission Environment Home with Family * ADLs Independent * Equipment None * List name and contact numbers for known caregivers / representatives who currently or will assist patient after discharge: PHILLIP (MOTHER) [phone] * Verbal permission to speak to the caregivers and representatives has been obtained from the patient. N/A * Community resources currently utilized None * Additional services required to return to the preadmission environment? Yes * Can the patient safely return to the preadmission environment? Yes * Has this patient been hospitalized within the prior 30 days at any hospital? No Coverage Notice Reviewer: [id number] - Guillermina Adamson Notice Issued Date-Time: 07/30/2019 9:00 Notice Type: Patient Choice Letter Notice Delivered To: Patient Relationship to Patient: Shuttle Driver Name: Delivery Method: HAND - Hand Delivered Anitha Days: Prior Verbal Notification: Recipient Understood Notice: Yes Recipient Signature: Yes Med Rec Note Co-signed by Attending: Coverage Notice Comment: edith for [facility] home [facility] Last DP export: 08/02/19 11:52 a Patient Name: OLI PATTERSON Page [id number] at 1534 All edits/amendments must be made on the electronic document DICTATION DATE: 08/03/19 1533 SETTER UP: MIGUELINA 08/03/19 153 RPT#: [id number] DC DATE:08/02/19 STATUS: DIS IN [facility] [address] [place] [address] END OF REPORT
== END 2019-08-02 15:29 | disposition home or self-care (01) | DRG 709 ==
LOC: D.ER 14:03 → D.MS 18:28
PROVIDERS: Family Medicine; Urology; ADMIT Family Medicine; ATTEND Family Medicine
PROC: 0VBSXZX Excision of Penis, External Approach, Diagnostic (ICD-10-PCS; 2019-07-29)
PROC: 0V950ZZ Drainage of Scrotum, Open Approach (ICD-10-PCS; principal; 2019-07-29 11:00)
DX: N49.2 Inflammatory disorders of scrotum (principal); I50.32 Chronic diastolic (congestive) heart failure; N45.1 Epididymitis; A63.0 Anogenital (venereal) warts; N43.3 Hydrocele, unspecified; I25.10 Atherosclerotic heart disease of native coronary artery without angina pectoris; I48.91 Unspecified atrial fibrillation; E78.5 Hyperlipidemia, unspecified; I11.0 Hypertensive heart disease with heart failure; J44.9 Chronic obstructive pulmonary disease, unspecified; D72.829 Elevated white blood cell count, unspecified; B95.62 Methicillin resistant Staphylococcus aureus infection as the cause of diseases classified elsewhere

== ENCOUNTER → 2020-12-05 12:46 | Outpatient (CLI) | payer BC ==
[2019-07-29 12:09] VITALS: BMI 26.5
[~2020-12-05 12:46] MED LIST changes: +MONODOX100 MG PO; +PERCOCET 10-321 EAC1 PO
== END | disposition home or self-care (01) ==
LOC: D.LAB 12:46
PROVIDERS: ATTEND Internal Medicine Pulmonary Disease
DX: Z20.822 Contact with and (suspected) exposure to COVID-19 (principal)

== ENCOUNTER → 2020-12-08 13:45 | Outpatient (CLI) | payer MEDICAID ==
[2019-07-29 12:09] VITALS: BMI 26.5
== END | disposition home or self-care (01) ==
LOC: D.RT 11-15 11:30
PROVIDERS: ATTEND Internal Medicine Pulmonary Disease
DX: J44.9 Chronic obstructive pulmonary disease, unspecified (principal); Z11.52 Encounter for screening for COVID-19